=== PATIENT | female | born 1930 | race Caucasian/White ===

== ENCOUNTER 2022-06-12 12:16 | Observation (INO) ==
--- NOTE | 2022-06-12 12:53 | Emergency Department Note ---
Impression & Plan Generalized weakness, Acute dehydration, Multiple falls, Anticoagulant long- term use, Multiple contusions ED Provider Note Name: FLORI NICOLE Age: 89 Sex: F Arrives Via: Ambulance Informant: Patient, son and granddaughter ED Provider: Luke Collado MD Chief Complaint: Weakness and falls Impression: As per impressions above Medical Decision Making: Pleasant 89-year-old female with a history of COPD, stroke, fluid overload, GERD, hyper lipidemia amongst others arrives for evaluation of worsening weakness and multiple falls. On examination patient is mildly dehydrated appearing in no distress but does ask periodic repetitive questions. She has extensive bruising over the left buttock but has a soft nontender abdomen is breathing relatively comfortably other than a junky cough. She does have an old bruise of the right forehead. She had several falls but per family has not seem to have hit her head. She has been able to ambulate since the last fall. L aboratory work-up is relatively benign other than mildly elevated creatinine. Her urinalysis via straight cath is unremarkable as well. Chest x-ray reviewed from yesterday reveals no acute findings. Pelvis x-ray has no fracture on my interpretation. And a CT of the head was obtained which shows no evidence of intracranial hemorrhage. Had a long discussion with the patient and the family regarding her multiple falls and generalized weakness. I suspect some of this may be due to some dehydration given she is dry appearing and creatinine is bumped a bit. That said she is falling frequently at home is on a anticoagulant and has no one to be there with her. I do not think it safe to go home at this time. Elaborates you are agreeing with this plan. Furthermore patient has a very junky productive cough. I do not see a pneumonia on yesterday's chest x- ray but given the persistent cough worsening weakness I think it is reasonable to add an antibiotic to the steroid that they were already started yesterday for her bronchitis. Prior Medical Record and Triage/Nursing Notes reviewed by Me Chart review by me included PCP visit from yesterday regarding her shortness of breath issues. Differentials:Intracranial hemorrhage, fractures, infection, dehydration, e lectrolyte/metabolic abnormality, ACS amongst multiple other pathologies considered Vital Signs: reviewed and remarkable for no significant abnormalities Interventions: Normal saline bolus 500 mL IV, doxycycline 100 mg p.o. Labs:Reviewed and remarkable for mild elevation in creatinine. I personally reviewed all laboratory findings Imaging:I reviewed and interpreted chest x-ray done yesterday at this facility which reveals no infiltrate, effusion or significant pulmonary overload. X-rays of the pelvis and left hip interpreted by me reveals no fracture nor dislocation, does reveal arthritic findings CT of the head denies without contrast roughly read by me reveals no evidence of intracranial hemorrhage which was confirmed by radiologist EKG:As per my interpretation. Indication weakness. Normal sinus rhythm at 68 bpm and QTC of 429. There is no ectopy nor ischemia. There is no significant change from EKG from April 15, 2022. Cardiac/Tele Monitoring: Cardiac Monitoring: An Order was placed for continuous cardiac monitoring. The monitor shows a rate of 70 with a normal sinus rhythm. Consults:Dr Shelbie MEYESR hospitalist Plan: Disposition:Hospitalization. Condition: Good History of Present Illness:89-year-old female arrives for evaluation of confusion. Patient has been doing well the last month or so. She did have a trip and fall about a month ago but had not had any issues since then. A bit of a cough on and off and even had a chest x-ray yesterday which was negative. I said the last 2 to 3 days patient with increasing confusion and not quite being herself. She had a fall onto the ground from try to sit on her walker and land ed on her buttocks. Was able to ambulate since then. She had another fall when trying to sit on the toilet today. Neither time if she hit her head. She denies any hip or extremity pain. Patient denies any symptoms. Family just dates she is not her normal self and she is not as interactive as usual. At times she has been having blank stares throughout the last 2 days. Does seem to be having some increased urination. She does have a history of UTIs. Patient is on a blood thinner sees Elvin). No medications prior to arrival. Nothing seems to make the confusion better or worse. Past History:See Below Home Medications:See Below Allergies:NKDA Vitals:Blood Pressure: 107/63, Pulse 71, RR 20, T 36.5C, O2 98% on 3L NC Physical Exam: GENERAL: Patient is elderly appearing and in minimal distress. EYES: No scleral icterus, unremarkable pupils. ENT: Mucous membranes dry, no nasal congestion. NECK: No masses appreciated, nomeningismus, trachea is midline. RESPIRATORY: No dyspnea. Clear to auscultation and equal bilaterally. No wheeze, no rhonchi. CARDIOVASCULAR: Regular rate and rhythm.No murmurs, rubs, gallops appreciated. GASTROINTESTINAL: Abdomen soft, non-tender, no peritonitis.Bowel sounds positive.No masses appreciated. BACK: No midline tenderness, no CVA tenderness EXTREMITIES: Normal motion all extremities, no cyanosis, no edema. NEUROLOGIC: Awake though repetitive at times and not oriented. No focal weakness appreciated SKIN: No rash, no jaundice, no diaphoresis. Large bruise over left buttock and left lower back, non-tender GCS: 15 ED Course: Times/Reassessments: Patient calm cooperative with junky cough agreeable to hospitalization Luke Collado MD Past Med/Surg History Medical History H/O: stroke History of deep venous thrombosis or pulmonary embolus Stroke Surgical History H/O hemorrhoidectomy H/O lumpectomy Family History Mother Myocardial infarction Stroke Sister Cancer Other No family history of bleeding disorder Denies family history of Heart disease Hypertension Asthma Social History Smoking Status: Never smoker Second Hand Exposure: No; Hx Alcohol Use: No Hx Substance Use: No Preferred Language: Fijian Communication Ability: Effective Visual Impairment: No Limitations Hearing Ability: Hard of Hearing Lieutenant/Deputy Required: No marital status: / Current Living Situation: Alone current occupational status: retired How many Children do You have: 2 Feels Safe at Home: Yes Childhood Exposure to Second-Hand Smoke: Yes Diet Comment: regular Dental Care, Regularly: No Physical Activity Frequency: Does not Exercise Seatbelt Use: always Sunscreen Use: No Assistive Devices: Glasses, Oxygen - Continuous and Walker Allergies Allergies Allergy/AdvReac Type Severity Reaction Status Date / Time No Known Drug Allergies Allergy Unknown Verified 06/11/22 14:08 Home Meds Home Medications Medication Instructions Recorded Confirmed acetaminophen 325 mg capsule 650 mg PO Q4H PRN Pain 05/15/19 06/12/22 polyethylene glycol 3350 17 17 gm PO DAILY 05/15/19 06/12/22 gram/dose oral powder (Miralax) aspirin 81 mg tablet,delayed 81 mg PO DAILY 10/17/19 06/12/22 release (Adult Aspirin Regimen) simvastatin 40 mg tablet 40 mg PO QPM 10/17/19 06/12/22 multivitamin 1 tab PO DAILY 10/09/21 06/12/22 omega 5-wva-jda-fish oil 1,000 mg 1 cap PO DAILY 10/09/21 06/12/22 (120 mg-180 mg) capsule mupirocin 2 % topical ointment 1 applic topical DAILY PRN Skin 06/12/22 06/12/22 Irritation Previous Rx's Medication Instructions Recorded ondansetron HCl 4 mg tablet 4 mg PO Q6H PRN nausea and 04/03/21 (Zofran) vomiting #15 tabs carvedilol 12.5 mg tablet 12.5 mg PO BID #180 tabs 10/19/21 venlafaxine 100 mg tablet 100 mg PO BID #180 tabs 10/19/21 O2 4 l continuous inhalation 10/20/21 CONTINOUS #1 unit montelukast 10 mg tablet 10 mg PO DAILY #90 tabs 11/19/21 pantoprazole 40 mg tablet,delayed 40 mg PO DAILY 0 days #90 tabs 12/28/21 release clotrimazole-betamethasone 1 1 applic topical BID 2 weeks #15 01/06/22 %-0.05 % topical cream grams furosemide 40 mg tablet 40 mg PO DAILY #90 tabs 01/19/22 budesonide-formoterol HFA 80 1 inh inhalation BID #10.2 grams 03/10/22 mcg-4.5 mcg/actuation aerosol inhaler (Symbicort) albuterol sulfate 2.5 mg/0.5 mL 5 mg inhalation Q6H PRN shortness 03/16/22 solution for nebulization of breath or wheezing #30 ea albuterol sulfate 2.5 mg/3 mL 2.5 mg (3 mL) inhalation Q6H PRN 04/15/22 (0.083 %) solution for nebulization shortness of breath or wheezing #180 mL apixaban 5 mg tablet 5 mg PO BID #60 tabs 04/26/22 lorazepam 0.5 mg tablet 0.5 mg PO TID PRN Anxiety 90 days 06/03/22 #270 tabs potassium chloride 20 mEq 20 meq PO DAILY #90 tabs 06/09/22 tablet,extended release(part/cryst) albuterol sulfate 90 mcg/actuation 2 puff inhalation QID PRN 06/11/22 aerosol inhaler shortness of breath or wheezing #6.7 grams prednisone 10 mg tablet 10 mg PO .COMPLEX #30 tabs 06/11/22 Results & Data (ED) Vital Signs Vital Signs - 24 hr 06/12/22 12:17 06/12/22 12:17 06/12/22 12:30 Temperature 36.5 C Temperature Source Oral Pulse Rate 68 Pulse Rate [Right Finger] 68 Respiratory Rate 20 20 Respiratory Effort / Characteristics Non-Labored Non-Labored Respiratory Depth Normal Normal Blood Pressure 114/53 L Blood Pressure [Left Arm] 109/53 L Blood Pressure Mean 73 Blood Pressure Mean [Left Arm] 71 Pulse Oximetry 95 95 Oxygen Delivery Method Nasal Cannula Nasal Cannula Nasal Cannula Oxygen Flow Rate 3 3 3 Sepsis Recent Fever Within 48 Hours No Sepsis New/Unexplained Change in Mental Status N/A Sepsis Action Taken by Nursing No Action Required 06/12/22 13:34 06/12/22 14:33 06/12/22 15:20 Temperature Temperature Source Pulse Rate Pulse Rate [Right Finger] 68 68 71 Respiratory Rate 20 20 20 Respiratory Effort / Characteristics Non-Labored Non-Labored Respiratory Depth Normal Normal Blood Pressure Blood Pressure [Left Arm] 102/66 131/72 107/63 Blood Pressure Mean Blood Pressure Mean [Left Arm] 78 91 77 Pulse Oximetry 97 100 98 Oxygen Delivery Method Nasal Cannula Nasal Cannula Nasal Cannula Oxygen Flow Rate 3 3 3 Sepsis Recent Fever Within 48 Hours Sepsis New/Unexplained Change in Mental Status Sepsis Action Taken by Nursing Laboratory Data 06/12/22 13:00 06/12/22 13:00 Lab Results 06/12/22 06/12/22 06/12/22 Range/Units 12:40 13:00 13:00 WBC 8.70 (4.8-10.8) K/ul RBC 2.91 L (4.20-5.40) M/uL Hgb 9.5 L (12.0-16.0) g/dl Hct 29.5 L (37.0-47.0) % MCV 101.4 H (80.0-100.0) fL MCH 32.6 (25.0-34.0) pg MCHC 32.2 (32.0-36.0) g/dL RDW Std Deviation 47.8 H (36.4-46.3) fL RDW Coeff of Tonya 12.8 (11.5-14.5) % Plt Count 173 (130-400) K/uL MPV 10.4 (9.4-12.4) fL Neutrophils % (Manual) 84 % Lymphocytes % (Manual) 9 % Monocytes % (Manual) 6 % Eosinophils % (Manual) 1 % Myelocytes % (Man) 1 % Neutrophils # (Manual) 7.31 H (1.40-6.50) K/uL Total Absolute Neuts 7.31 H (1.4-6.5) K/uL Lymphocytes # (Manual) 0.78 L (1.2-3.4) K/uL Total Abs Lymphocytes 0.78 L (1.2-3.4) K/uL Monocytes # (Manual) 0.52 (0.11-0.59) K/uL Eosinophils # (Manual) 0.09 (0-0.50) K/uL Myelocytes # (Manual) 0.09 H (0-0) K/uL Polychromasia 1+ PT 11.4 (9.0-12.0) Seconds INR 1.1 (0.9-1.1) Sodium (136-145) mmol/L Potassium (3.5-5.1) mmol/L Chloride (98-107) mmol/L Carbon Dioxide (21-32) mmol/L Anion Gap (3-11) BUN (6-23) mg/dl Creatinine (0.6-1.2) mg/dl Est Cr Clr Drug Dosing ml/min Est GFR ( Amer) ml/min Est GFR (Non-Af Amer) ml/min BUN/Creatinine Ratio (10-20) Glucose (70-99(Fasting)) mg/dl Calcium (8.5-10.1) mg/dl Magnesium (1.7-2.4) mg/dl Total Bilirubin (0.2-1.0) mg/dl Direct Bilirubin (0-0.2) mg/dl AST (13-39) U/L ALT (7-52) U/L Alkaline Phosphatase (34-104) U/L Troponin I High Sens (0-14) pg/ml Total Protein (6.0-8.3) gm/dl Albumin (3.4-5.0) gm/dl Urine Color Dark Yellow Urine Appearance Cloudy A (Clear) Urine pH 5.5 (4.5-7.5) Ur Specific [place] 1.021 (1.000-1.030) Urine Protein 2+ H (Negative) Urine Glucose (UA) Negative (Negative) Urine Ketones Trace H (Negative) Urine Blood Negative (Negative) Urine Nitrite Negative (Negative) Urine Bilirubin Negative (Negative) Urine Urobilinogen Negative (Negative) Ur Leukocyte Esterase Negative (Negative) Urine WBC (Auto) 1-5 (0-5) /hpf Urine RBC (Auto) 0-4 (0-4) /hpf U Hyaline Cast (Auto) 10-30 H (0-5) /lpf U Epithel Cells (Auto) >30 H (0-5) /lpf Urine Bacteria (Auto) Negative (Negative) SARS-CoV-2 (PCR) (Negative) Influenza Type A (PCR) (Neg) Influenza Type B (PCR) (Neg) RSV (RT-PCR) (Neg) 06/12/22 06/12/22 Range/Units 13:00 13:58 WBC (4.8-10.8) K/ul RBC (4.20-5.40) M/uL Hgb (12.0-16.0) g/dl Hct (37.0-47.0) % MCV (80.0-100.0) fL MCH (25.0-34.0) pg MCHC (32.0-36.0) g/dL RDW Std Deviation (36.4-46.3) fL RDW Coeff of Tonya (11.5-14.5) % Plt Count (130-400) K/uL MPV (9.4-12.4) fL Neutrophils % (Manual) % Lymphocytes % (Manual) % Monocytes % (Manual) % Eosinophils % (Manual) % Myelocytes % (Man) % Neutrophils # (Manual) (1.40-6.50) K/uL Total Absolute Neuts (1.4-6.5) K/uL Lymphocytes # (Manual) (1.2-3.4) K/uL Total Abs Lymphocytes (1.2-3.4) K/uL Monocytes # (Manual) (0.11-0.59) K/uL Eosinophils # (Manual) (0-0.50) K/uL Myelocytes # (Manual) (0-0) K/uL Polychromasia PT (9.0-12.0) Seconds INR (0.9-1.1) Sodium 138 (136-145) mmol/L Potassium 5.0 (3.5-5.1) mmol/L Chloride 102 (98-107) mmol/L Carbon Dioxide 32 (21-32) mmol/L Anion Gap 4 (3-11) BUN 33 H (6-23) mg/dl Creatinine 1.35 H (0.6-1.2) mg/dl Est Cr Clr Drug Dosing 36.5 ml/min Est GFR ( Amer) 40.2 ml/min Est GFR (Non-Af Amer) 34.7 ml/min BUN/Creatinine Ratio 24.4 H (10-20) Glucose 128 H (70-99(Fasting)) mg/dl Calcium 9.0 (8.5-10.1) mg/dl Magnesium 2.2 (1.7-2.4) mg/dl Total Bilirubin 0.5 (0.2-1.0) mg/dl Direct Bilirubin 0.1 (0-0.2) mg/dl AST 13 (13-39) U/L ALT 10 (7-52) U/L Alkaline Phosphatase 42 (34-104) U/L Troponin I High Sens 8.1 (0-14) pg/ml Total Protein 6.0 (6.0-8.3) gm/dl Albumin 3.6 (3.4-5.0) gm/dl Urine Color Urine Appearance (Clear) Urine pH (4.5-7.5) Ur Specific [place] (1.000-1.030) Urine Protein (Negative) Urine Glucose (UA) (Negative) Urine Ketones (Negative) Urine Blood (Negative) Urine Nitrite (Negative) Urine Bilirubin (Negative) Urine Urobilinogen (Negative) Ur Leukocyte Esterase (Negative) Urine WBC (Auto) (0-5) /hpf Urine RBC (Auto) (0-4) /hpf U Hyaline Cast (Auto) (0-5) /lpf U Epithel Cells (Auto) (0-5) /lpf Urine Bacteria (Auto) (Negative) SARS-CoV-2 (PCR) NEGATIVE (Negative) Influenza Type A (PCR) Negative (Neg) Influenza Type B (PCR) Negative (Neg) RSV (RT-PCR) Negative (Neg) Administered Medications Discontinued Medications Doxycycline Hyclate (Doxycycline Hyclate 100 Mg Cap) 100 mg PO NOW STA Stop: 06/12/22 14:42 Last Admin: 06/12/22 15:19 Dose: 100 mg Documented By: CORBIN Sodium Chloride (Nss) 500 mls @ 999 mls/hr IV .Q31M ONE Stop: 06/12/22 15:11 Last Admin: 06/12/22 15:19 Dose: 999 mls/hr Documented By: CORBIN Imaging Data Radiologist's Impression: Head CT 06/12/22 12:[address] DOSE: 537.48 mGy.cm HISTORY: confusion TECHNIQUE: Multiaxial CT images of the head were performed without the use of intravenous contrast. Automated exposure control was utilized for this study. A dose lowering technique was utilized adhering to the principles of ALARA. Comparison: Head CT 03/01/2022. Findings: The small retention cyst within the left maxillary sinus. The mastoid air cells are clear. The calvarium and skull base are intact. There is no mass, hematoma, midline shift, acute infarct. White matter hypodensity is nonspecific but suggestive of microvascular ischemic change. The ventricles and sulci demonstrate mild age-related involutional changes. Impression: No acute intracranial abnormality. Atrophy and microvascular ischemic changes. ACT 112: Negative or not required by law. Electronically signed by: Evens Soler M.D. 06/12/2022 2:29 PM Pelvis X-Ray 06/12/22 12:40 XR pelvis 1-2V routine CLINICAL HISTORY: Fall. Hip pain. COMPARISON STUDY: None. FINDINGS: Moderate degenerative changes within the pelvis and hips. No fracture or dislocation within the pelvis or hips. The sacrum is intact. A small calcified uterine fibroid is noted. IMPRESSION: No fracture or dislocation within the pelvis or hips. ACT 112: Negative or not required by law. Electronically signed by: Evens Soler M.D. 06/12/2022 2:26 PM Discharge Plan Visit Data Chief Complaint: Confusion ED Provider: Luke Collado Discharge Problem: Generalized weakness, Acute dehydration, Multiple falls, Anticoagulant long- term use, Multiple contusions Forms Stand Alone Forms: My 28msec Prescriptions Prescriptions: No Action carvedilol 12.5 mg tablet 12.5 mg PO BID Qty: 180 3RF venlafaxine 100 mg tablet 100 mg PO BID Qty: 180 3RF O2 4 l continuous inhalation CONTINOUS Qty: 1 0RF montelukast 10 mg tablet 10 mg PO DAILY Qty: 90 3RF pantoprazole 40 mg tablet,delayed release (DR/EC) 40 mg PO DAILY Qty: 90 3RF furosemide 40 mg tablet 40 mg PO DAILY Qty: 90 1RF albuterol sulfate 2.5 mg/0.5 mL solution for nebulization 5 mg inhalation Q6H PRN (Reason: shortness of breath or wheezing) Qty: 30 0RF apixaban 5 mg tablet 5 mg PO BID Qty: 60 3RF lorazepam 0.5 mg tablet 0.5 mg PO TID PRN (Reason: Anxiety) 90 Days Qty: 270 0RF potassium chloride 20 mEq tablet,ER particles/crystals 20 meq PO DAILY Qty: 90 1RF albuterol sulfate 90 mcg/actuation HFA aerosol inhaler 2 puff inhalation QID PRN (Reason: shortness of breath or wheezing) Qty: 6.7 3RF aspirin [Adult Aspirin Regimen] 81 mg tablet,delayed release (DR/EC) 81 mg PO DAILY simvastatin 40 mg tablet 40 mg PO QPM clotrimazole-betamethasone 1-0.05 % cream 1 applic topical BID 14 Days Qty: 15 1RF Rx Instructions: Apply to the external right ear twice daily x 7 days then twice weekly x 3 weeks then as needed for itching/flaking Apply to the left ear alternating with mupirocin ointment daily x 2 weeks then PRN itching/flaking. acetaminophen 325 mg capsule 650 mg PO Q4H PRN (Reason: Pain) polyethylene glycol 3350 [Miralax] 17 gram/dose powder 17 gm PO DAILY multivitamin Tablet 1 tab PO DAILY omega 2-yyt-csb-fish oil 1,000 mg (120 mg-180 mg) capsule 1 cap PO DAILY budesonide-formoterol [Symbicort] 80-4.5 mcg/actuation HFA aerosol inhaler 1 inh inhalation BID Qty: 10.2 2RF prednisone 10 mg tablet 10 mg PO .COMPLEX Qty: 30 0RF Rx Instructions: 4 tabs for 3 days, 3 tabs for 3 days, 2 tabs for 3 days, 1 tab for 3 days albuterol sulfate 2.5 mg /3 mL (0.083 %) solution for nebulization 2.5 mg inhalation Q6H PRN (Reason: shortness of breath or wheezing) Qty: 180 0RF ondansetron HCl [Zofran] 4 mg tablet 4 mg PO Q6H PRN (Reason: nausea and vomiting) Qty: 15 0RF mupirocin 2 % ointment 1 applic topical DAILY PRN (Reason: Skin Irritation) Rx Instructions: apply once daily to the left ear alternating with clotrimazole-betamethasone ointment x 2 weeks. Referrals Referrals: Waqas Reilly, [Primary Care Provider] -
[2022-06-12 13:08] LABS: Appearance Urine Cloudy (Clear); Bacteria Urine Automated Negative (Negative); Bilirubin Urine Negative (Negative); Blood Urine Negative (Negative); Color Urine Dark Yellow; Epithelial Cell Urine Auto >30 /lpf (0-5); Glucose Urine UA Negative (Negative); Ketones Urine Trace (Negative); Leukocyte Esterase Urine Negative (Negative); Nitrite Urine Negative (Negative); Protein Urine 2+ (Negative); RBC Urine Automated 0-4 /hpf (0-4); Specific Gravity Urine 1.021 (1.000-1.030); Urobilinogen Urine Negative (Negative); pH Urine 5.5 (4.5-7.5)
[2022-06-12 13:09] LABS: Hematocrit (blood only) 29.5 % (37.0-47.0); Hemoglobin 9.5 g/dl (12.0-16.0); Mean Corpuscular Hemoglobin 32.6 pg (25.0-34.0); Mean Corpuscular Hgb Conc 32.2 g/dL (32.0-36.0); Mean Corpuscular Volume 101.4 fL (80.0-100.0); Mean Platelet Volume 10.4 fL (9.4-12.4); Platelet Count 173 K/uL (130-400); RDW Coefficient of Variation 12.8 % (11.5-14.5); RDW Standard Deviation 47.8 fL (36.4-46.3); Red Blood Count 2.91 M/uL (4.20-5.40)
[2022-06-12 13:17] LABS: INR 1.1 (0.9-1.1); Prothrombin Time 11.4 Seconds (9.0-12.0)
[2022-06-12 13:29] LABS: ALC (manual) 0.78 K/uL (1.2-3.4); ANC (manual) 7.31 K/uL (1.4-6.5); Eosinophils # (manual) 0.09 K/uL (0-0.50); Eosinophils % (manual) 1 %; Lymphocytes # (manual) 0.78 K/uL (1.2-3.4); Lymphocytes % (manual) 9 %; Monocytes # (manual) 0.52 K/uL (0.11-0.59); Monocytes % (manual) 6 %; Myelocytes # (manual) 0.09 K/uL (0-0); Myelocytes % (manual) 1 %; Neutrophils # (manual) 7.31 K/uL (1.40-6.50); Neutrophils % (manual) 84 %; Polychromasia 1+
[2022-06-12 13:38] LABS: Troponin I High Sensitivity 8.1 pg/ml (0-14)
[2022-06-12 13:43] LABS: Albumin Level 3.6 gm/dl (3.4-5.0); Bilirubin Direct 0.1 mg/dl (0-0.2); Bilirubin,Total 0.5 mg/dl (0.2-1.0); Magnesium 2.2 mg/dl (1.7-2.4)
[2022-06-12 13:49] LABS: BUN Creatinine Ratio 24.4 (10-20); Creatinine Clr Calc Pharmacy 36.5 ml/min; Est GFR (African American) 40.2 ml/min; Est GFR (Non-African American) 34.7 ml/min
--- NOTE | 2022-06-12 14:28 | XRay Report ---
XR pelvis 1-2V routine CLINICAL HISTORY: Fall. Hip pain. COMPARISON STUDY: None. FINDINGS: Moderate degenerative changes within the pelvis and hips. No fracture or dislocation within the pelvis or hips. The sacrum is intact. A small calcified uterine fibroid is noted. IMPRESSION: No fracture or dislocation within the pelvis or hips. ACT 112: Negative or not required by law. Electronically signed by: Evens Soler M.D. 06/12/2022 2:26 PM
--- NOTE | 2022-06-12 14:30 | CT Scan Report ---
HEAD CT NONCONTRAST CT DOSE: 537.48 mGy.cm HISTORY: confusion TECHNIQUE: Multiaxial CT images of the head were performed without the use of intravenous contrast. A utomated exposure control was utilized for this study. A dose lowering technique was utilized adheri ng to the principles of ALARA. Comparison: Head CT 03/01/2022. Findings: The small retention cyst within the left maxillary sinus. The mastoid air cells are clear. The calvarium and skull base are intact. There is no mass, hematoma, midline shift, acute infarct. Wh ite matter hypodensity is nonspecific but suggestive of microvascular ischemic change. The ventricles and sulci demonstrate mild age-related involutional changes. Impression: No acute intracranial abnormality. Atrophy and microvascular ischemic changes. ACT 112: Negative or not required by law. Electronically signed by: Evens Soler M.D. 06/12/2022 2:29 PM
[2022-06-12] MEDS ORDERED: SODIUM CHLORIDE 0.9% 500 ML IV ONE (14:41)
[2022-06-12] MEDS ORDERED: DOXYCYCLINE HYCLATE 100 MG CAP PO STA (14:41)
[2022-06-12 14:59] LABS: Influenza A virus by PCR Negative (Neg); Influenza B virus by PCR Negative (Neg); RSV by PCR Negative (Neg); SARS CoV2 RNA(COVID-19) Ceph NEGATIVE (Negative)
--- NOTE | 2022-06-12 15:18 | History & Physical Report ---
Date of Service June 12, 2022 Assessment & Plan (1) Multiple falls: Plan: -Admit to med/tele -The patient is currently afebrile, hemodynamically stable, and stable on her baseline 2L NC -At this time the patient's recent falls sound most consistent with dizziness /orthostatic hypotension, likely due to her lasix and carvedilol -No signs of acute infection, patient appears dry on exam and cr is elevated compared to baseline, patient has had multiple episodes of dizziness prior to her falls, CT of the head was negative and she is without focal neuro defects, no signs or symptoms of possible seizure-like activity -Xray of the pelvis was negative for acute fractures/dislocations, patient has a large hematoma on the buttocks with tenderness to the lower lumbar spine, will obtain CT of the abd/pelvis wo con for further assessment -For now will hold her lasix and reduce her dose of Carvedilol from 12.5 BID to 6.25 -Monitor on tele -Will obtain am orthostatic vitals and have her evaluated by PT/OT -Patient has been on prn ativan for over 60 years, was ordered as 0.5 mg TID, will decreased the dose to 0.25 mg PO HS prn for now to avoid polypharmacy and sedation -Fall precautions ordered -Am CBC, BMP, mag (2) ALISHA (acute kidney injury): Plan: -Cr today is 1.35, baseline appears to be 1.0 -Likely due to dehydration from her lasix and poor oral intake -S/P 500 mL NSS bolus in the ED -Hold lasix for now (should likely reduce her dose or hold completely prior to discharge) -Monitor am renal function (3) HTN (hypertension): Plan: -Stable -Hold lasix, monitor BP with reduction in her dose of Carvedilol -Hold KCL for now while holding lasix (4) Chronic respiratory failure with hypoxia: Plan: -Stable on her baseline 2L NC -No sign of pneumonia on CXR, patient is without increased SOB -Was started on prednisone and albuterol yesterday by her PCP and received one dose of doxy in the ED for possible bronchitis -It does not appear that she has bronchitis at this time -Will hold pred and doxy, continue with her normal breathing treatments and prn DuoNebs -Monitor on tele and pulse oximetry -Procal on admission is in process, will follow up (5) History of deep venous thrombosis or pulmonary embolus: Plan: -Continue eliquis (6) Anxiety: Plan: -Continue venlafaxine -Continue with reduced dosing of ativan Plan The patient was discussed with Dr. Morfin at the time of the admission History of Present Illness Chief Complaint: Generalized weakness, multiple falls Primary Care Provider: Waqas Reilly DO Quintana is an 89 year old female with a PMH significant for previous DVT and PE in 2019 on Eliquis, previous CVA, Pulmonary HTN, grade I diastolic dysfunction, chronic respiratory failure with Hypoxia on 2L NC at all times, and anxiety/depression who presented to the [facility] ED on 06/12/22 with complaints of generalized weakness and multiple recent falls at home. In the ED the patient was found to be afebrile, hemodynamically stable, and stable on 2L NC. Labs were remarkable for a CBC with WBC WNL, hgb of 9.5 (down from 11.4 on 04/15/22), MCV of 101 with stable MCHC, stable platelets at 173, cr at 1.35 (baseline appears to be around 1.0), stable electrolytes, glucose of 128, initial high sensitivity trop of 8.1, UA not suggestive of UTI, and Coivd/influenza/rsv negative. CT of the head was read as "No acute intracranial abnormality. Atrophy and microvascular ischemic changes.". Xray of the pelvis was read as "No fracture or dislocation within the pelvis or hips.". Chest xray from 06/11/22 was read as "No acute cardiopulmonary findings.". The patient lives alone and her family believes she is too weak at this time and will continue to fall. Prior to admission the patient was given 100 mg PO Doxycycline and a 500 mL fluid bolus. Per chart review, the patient was seen at her PCP's office on 06/11/22 for symptoms of cough and SOB. She was prescribed a tapering course of prednisone and albuterol. At the time of the exam the patient was resting comfortably in bed in no acute distress. History was only obtained from her as her family had left prior to my arrival. She states that she had a fall yesterday which occurred in her bathroom. She states that she was attempting to sit on the toilet but slipped and landed on her buttocks. She denies hitting her head or losing consciousness. Since her fall she denies head pain, cervical, thoracic, and lumbar pain, chest pain, abdominal pain, and LE pain. She does not soreness in her buttocks and states "i have a big bruise there now". She denies recent fevers, chills, chest pain, nausea, vomiting, diarrhea, dysuria, hematuria, poor appetite, bloody bowel movements, melena, and recent LE swelling. She confirms that she saw her PCP yesterday and when asked states that she started the prednisone and albuterol this morning. When asked, she currently denies fevers, chills, changes in vision, hearing, taste, and smell, chest pain, increased SOB from baseline, cough, abdominal pain, nausea, vomiting, diarrhea, dysuria, hematuria, and lower extremity swelling/pain. We discussed code status and she wishes to be a DNR/DNI. I called and spoke with her Daughter/POA (Lanie; number is in the chart) to obtain further history and confirm her med rec. Her daughter states that she has fallen twice in the past 24 hours. She fell yesterday trying to sit in a chair in her bedroom. She landed on her buttocks and did not lose consciousness. She used her life alert and EMS examined her and helped her up, she was not taken to the ED. This morning her Daughter's and daughter went over to check on her and help her with breakfast. She ate breakfast and took her morning medications without issue. They helped her stand and she began to walk to the bathroom while using her walker. She became dizzy and fell backwards, her granddaughter was able to catch her and they brought her to the ED. He daughter denies that the patient has recently been confused. She confirms that the patient started taking the prednisone and albuterol this am. Her daughter is in agreement with having the patient evaluated by PT/OT and confirmed that the patient is a DNR/DNI. Please refer to Dr. Stearns's attestation for any changes to the treatment plan Allergies Allergy/AdvReac Type Severity Reaction Status Date / Time No Known Drug Allergies Allergy Unknown Verified 06/11/22 14:08 Home Medications Medication Instructions Recorded Confirmed Type acetaminophen 325 mg capsule 650 mg PO Q4H PRN Pain 05/15/19 06/12/22 History polyethylene glycol 3350 17 17 gm PO DAILY 05/15/19 06/12/22 History gram/dose oral powder (Miralax) aspirin 81 mg tablet,delayed 81 mg PO DAILY 10/17/19 06/12/22 History release (Adult Aspirin Regimen) simvastatin 40 mg tablet 40 mg PO QPM 10/17/19 06/12/22 History ondansetron HCl 4 mg tablet 4 mg PO Q6H PRN nausea and 04/03/21 06/12/22 Rx (Zofran) vomiting #15 tabs multivitamin 1 tab PO DAILY 10/09/21 06/12/22 History omega 8-xxw-mlj-fish oil 1,000 mg 1 cap PO DAILY 10/09/21 06/12/22 History (120 mg-180 mg) capsule carvedilol 12.5 mg tablet 12.5 mg PO BID #180 tabs 10/19/21 06/12/22 Rx venlafaxine 100 mg tablet 100 mg PO BID #180 tabs 10/19/21 06/12/22 Rx O2 4 l continuous inhalation 10/20/21 06/12/22 Rx CONTINOUS #1 unit montelukast 10 mg tablet 10 mg PO DAILY #90 tabs 11/19/21 06/12/22 Rx pantoprazole 40 mg tablet,delayed 40 mg PO DAILY 0 days #90 tabs 12/28/21 06/12/22 Rx release clotrimazole-betamethasone 1 1 applic topical BID 2 weeks #15 01/06/22 06/12/22 Rx %-0.05 % topical cream grams furosemide 40 mg tablet 40 mg PO DAILY #90 tabs 01/19/22 06/12/22 Rx budesonide-formoterol HFA 80 1 inh inhalation BID #10.2 grams 03/10/22 06/12/22 Rx mcg-4.5 mcg/actuation aerosol inhaler (Symbicort) albuterol sulfate 2.5 mg/0.5 mL 5 mg inhalation Q6H PRN shortness 03/16/22 06/12/22 Rx solution for nebulization of breath or wheezing #30 ea albuterol sulfate 2.5 mg/3 mL 2.5 mg (3 mL) inhalation Q6H PRN 04/15/22 06/12/22 Rx (0.083 %) solution for nebulization shortness of breath or wheezing #180 mL apixaban 5 mg tablet 5 mg PO BID #60 tabs 04/26/22 06/12/22 Rx lorazepam 0.5 mg tablet 0.5 mg PO TID PRN Anxiety 90 days 06/03/22 06/12/22 Rx #270 tabs potassium chloride 20 mEq 20 meq PO DAILY #90 tabs 06/09/22 06/12/22 Rx tablet,extended release(part/cryst) albuterol sulfate 90 mcg/actuation 2 puff inhalation QID PRN 06/11/22 06/12/22 Rx aerosol inhaler shortness of breath or wheezing #6.7 grams prednisone 10 mg tablet 10 mg PO .COMPLEX #30 tabs 06/11/22 06/12/22 Rx mupirocin 2 % topical ointment 1 applic topical DAILY PRN Skin 06/12/22 06/12/22 History Irritation Past Med/Surg History Medical History (Updated 06/12/22 @ 16:36 by Patrice Marie PA-C) H/O: stroke History of deep venous thrombosis or pulmonary embolus Stroke Surgical History H/O hemorrhoidectomy H/O lumpectomy Family History Mother Myocardial infarction Stroke Sister Cancer Other No family history of bleeding disorder Denies family history of Heart disease Hypertension Asthma Social History Smoking Status: Never smoker Second Hand Exposure: No; Hx Alcohol Use: No Hx Substance Use: No Preferred Language: Bruneian Communication Ability: Effective Visual Impairment: No Limitations Hearing Ability: Hard of Hearing Capsule Maker Required: No Beliefs That Will Affect Care: None marital status: / Current Living Situation: Alone current occupational status: retired How many Children do You have: 2 Feels Safe at Home: Yes Safety Concerns: Feels Safe At This Time Childhood Exposure to Second-Hand Smoke: Yes Diet Comment: regular Dental Care, Regularly: No Physical Activity Frequency: Does not Exercise Seatbelt Use: always Sunscreen Use: No Assistive Devices: Oxygen - Continuous and Walker Review of Systems Review of Systems: Denies current fever, chills, headache, changes in vision, hearing, taste, and smell, chest pain, SOB, abdominal pain, nausea, vomiting, diarrhea, hematemesis, melena, dysuria, hematuria All systems have been reviewed and are otherwise negative. Physical Exam Physical Exam: Physical Exam: General: In no acute distress, stated age, morbidly obese, chronically ill- appearing HEENT: Normocephalic, atraumatic, no scleral icterus, left pupil appears asymmetric from previous procedure, right pupile is round and reactive to light, currently with NC in place, moist mucus membranes, trachea midline, no thyro megaly Chest/Pulm: No respiratory distress, symmetrical chest expansion, expiratory wheezing noted throughout Cardiac: RRR, no murmurs noted Abdomen: Negative for ascites and bruising, normoactive bowel sounds, soft, non-tender to palpation throughout Musculoskeletal: Patient is non-tender to palpation over the face, skull, cervical spine, and thoracic spine. No actue trauma noted in the upper and lower extremities. Patient with a large hematoma over the left buttocks which is tender to palpation, patient is mildly tender to palpation over the lower lumbar spine Extremities: Radial, dorsalis pedis, and posterior tibial pulses are intact and symmetrical, no edema noted in the BL LE's Skin: As described above Neuro: Alert and oriented to person, place, month, year, no focal defects, CN II-XII tested and intact, no tremors noted Psych: No acute distress, calm and cooperative during the exam Results & Data Results & Data ([facility]) Vital Signs (Past 12 Hours) Vital Signs Temp Pulse Pulse Resp BP BP Pulse Ox 06/12/22 14:33 68 20 131/72 100 06/12/22 13:34 68 20 102/66 97 06/12/22 12:30 68 20 109/53 L 95 06/12/22 12:17 06/12/22 12:17 36.5 C 68 20 114/53 L 95 O2 Del Method O2 Flow Rate 06/12/22 14:33 Nasal Cannula 3 06/12/22 13:34 Nasal Cannula 3 06/12/22 12:30 Nasal Cannula 3 06/12/22 12:17 Nasal Cannula 3 06/12/22 12:17 Nasal Cannula 3 Laboratory Results Abnormal lab results 06/12/22 06/12/22 06/12/22 Range/Units 12:40 13:00 13:00 RBC 2.91 L (4.20-5.40) M/uL Hgb 9.5 L (12.0-16.0) g/dl Hct 29.5 L (37.0-47.0) % MCV 101.4 H (80.0-100.0) fL RDW Std Deviation 47.8 H (36.4-46.3) fL Neutrophils # (Manual) 7.31 H (1.40-6.50) K/uL Total Absolute Neuts 7.31 H (1.4-6.5) K/uL Lymphocytes # (Manual) 0.78 L (1.2-3.4) K/uL Total Abs Lymphocytes 0.78 L (1.2-3.4) K/uL Myelocytes # (Manual) 0.09 H (0-0) K/uL BUN 33 H (6-23) mg/dl Creatinine 1.35 H (0.6-1.2) mg/dl BUN/Creatinine Ratio 24.4 H (10-20) Glucose 128 H (70-99(Fasting)) mg/dl Urine Appearance Cloudy A (Clear) Urine Protein 2+ H (Negative) Urine Ketones Trace H (Negative) U Hyaline Cast (Auto) 10-30 H (0-5) /lpf U Epithel Cells (Auto) >30 H (0-5) /lpf Diagnostic Findings Head CT 06/12/22 12:[address] DOSE: 537.48 mGy.cm HISTORY: confusion TECHNIQUE: Multiaxial CT images of the head were performed without the use of intravenous contrast. Automated exposure control was utilized for this study. A dose lowering technique was utilized adhering to the principles of ALARA. Comparison: Head CT 03/01/2022. Findings: The small retention cyst within the left maxillary sinus. The mastoid air cells are clear. The calvarium and skull base are intact. There is no mass, hematoma, midline shift, acute infarct. White matter hypodensity is nonspecific but suggestive of microvascular ischemic change. The ventricles and sulci demonstrate mild age-related involutional changes. Impression: No acute intracranial abnormality. Atrophy and microvascular ischemic changes. ACT 112: Negative or not required by law. Electronically signed by: Evens Soler M.D. 06/12/2022 2:29 PM Pelvis X-Ray 06/12/22 12:40 XR pelvis 1-2V routine CLINICAL HISTORY: Fall. Hip pain. COMPARISON STUDY: None. FINDINGS: Moderate degenerative changes within the pelvis and hips. No fracture or dislocation within the pelvis or hips. The sacrum is intact. A small calcified uterine fibroid is noted. IMPRESSION: No fracture or dislocation within the pelvis or hips. ACT 112: Negative or not required by law. Electronically signed by: Evens Soler M.D. 06/12/2022 2:26 PM ECG Additional Comments: Normal sinus rhythm Normal ECG When compared with ECG of 15-APR-2022 13:44, Non- specific change in ST segment in Inferior leads ST no longer elevated in Lateral leads Code Status & VTE Plan Code Status DNR/DNI VTE Prophylaxis Plan VTE Prophylaxis will be ordered: Yes Supervising Physician Co-Signing Physician Notes I personally saw and examined the patient. I verified all gray points and agree with Patrice Marie PA-C with the following exceptions and/or additions: 89 year old presents with fall and clear orthostasis ongoing for weeks but much worse in the last few days. No history of pulmonary edema per patient recollection. Already took her morning medication including Lasix and carvedilol this morning. No melena or bright red blood in stool. O/E A&Ox3, HS1+2, RRR, no murmurs, Chest CTAB, Abdo SNT, Ecchymosis present over left buttocks A/P Fall - likely orthostasis due to anti-hypertensives. No infection symptoms or signs from history of exam making this acutely worse but suspect it has been going on for some time and she just needs a reduction in her medications +/- anemia contributing. Stop Lasix. Reduce carvedilol to 6.25mg Po BID. Orthostatics tomorrow although do not expect significant improvement until Tuesday. PT/OT. Also discussed reducing her chronic lorazepam use given increased risk of falls on this medication which she is amenable to. Anemia - Suspect due to bruising from fall. No concerns for GI bleed. Ok to continue on Eliquis at this time. PG Care Time/CCT Total # of Minutes Spent Total Time Spent with Patient: Total time spent is greater than 50% in coordination of care (as documented) at patient's floor/unit and/or counseling patient: C[place] [address] INT INP/OBS CARE MIN Patient Type Established Medical Decision Making High Complexity Diagnoses Multiple falls R29.6 ALISHA (acute kidney injury) N17.9 HTN (hypertension) I10 Chronic respiratory failure with hypoxia J96.11 History of deep venous thrombosis or pulmonary embolus Anxiety F41.9
[2022-06-12 16:06] LABS: Vitamin B12 382 pg/ml (180-914)
--- NOTE | 2022-06-12 17:10 | CT Scan Report ---
CT OF THE ABDOMEN AND PELVIS WITHOUT CONTRAST CLINICAL HISTORY: Multiple falls. COMPARISON STUDY: CT of the abdomen and pelvis October 20, 2007. Pelvis radiograph performed earlier tod ay. TECHNIQUE: Axial images of the abdomen and pelvis were obtained without IV contrast. Images were revi ewed in the axial, sagittal, and coronal planes. Automated exposure control was utilized for the biju dy. A dose lowering technique was utilized adhering to the principles of ALARA. FINDINGS: This exam is compromised by body wall contacting the gantry with resultant artifact. Note i s made of a hyperdense fluid collection within the subcutaneous tissues of the right lower back consi stent with a contusion. This is partially imaged on this exam given artifact. This measures approxima tely 15 x 14.8 x 3.7 cm. No hemoperitoneum or pneumoperitoneum is present. There is no evidence for t raumatic injury to the liver, spleen, adrenal glands, kidneys or pancreas on this unenhanced exam. Th ere is no free fluid. There is no evidence for a bowel obstruction. 3 cm infrarenal abdominal aortic aneurysm is noted. There is extensive aortoiliac atherosclerotic plaque. Calcified fibroid is inciden tally noted. There is no lymphadenopathy. No acute lumbar spine, pelvic or hip fractures are identifi ed. IMPRESSION: 1. Moderate to large right lower back subcutaneous contusion, measuring approximately 15 x 14.8 x 3.7 cm, partially obscured by artifact. 2. No additional acute traumatic findings identified. No acute fractures. 3. 3 cm infrarenal abdominal aortic aneurysm. ACT 112: Negative or not required by law. Electronically signed by: Jae Barone M.D. 06/12/2022 5:08 PM
[2022-06-12] MEDS ORDERED: APIXABAN 5 MG TABLET PO SCH (21:25)
[2022-06-12] MEDS: ALBUT/IPRATROP 3MG/0.5MG NEB 3 ML VIAL NEB SCH (21:47)
[2022-06-12] MEDS: carvediloL 6.25 MG TAB PO SCH (21:55)
[2022-06-12] MEDS: SIMVASTATIN 40 MG TAB PO SCH (21:57)
[2022-06-12] MEDS: VENLAFAXINE HCL 50 MG TAB PO SCH (21:58)
[2022-06-12] MEDS: LORazepam 0.5 MG TAB PO PRN (22:00)
[2022-06-12] MEDS: ACETAMINOPHEN 325 MG TAB PO PRN (22:01)
[2022-06-13 02:25] LABS: Amphetamines+Metham, Urine Neg (Neg); Barbiturates, Urine Neg (Neg); Benzodiazepine, Urine Neg (Neg); Cocaine, Urine Neg (Neg); MDMA (Ecstacy), Urine Neg (Neg); Methadone, Urine Neg (Neg); Opiate, Urine Neg (Neg); Phencyclidine, Urine Neg (Neg)
[2022-06-13 05:36] LABS: Hematocrit (blood only) 25.2 % (37.0-47.0); Hemoglobin 8.2 g/dl (12.0-16.0); Mean Corpuscular Hemoglobin 33.3 pg (25.0-34.0); Mean Corpuscular Hgb Conc 32.5 g/dL (32.0-36.0); Mean Corpuscular Volume 102.4 fL (80.0-100.0); Mean Platelet Volume 10.7 fL (9.4-12.4); Platelet Count 165 K/uL (130-400); RDW Coefficient of Variation 12.8 % (11.5-14.5); RDW Standard Deviation 47.8 fL (36.4-46.3); Red Blood Count 2.46 M/uL (4.20-5.40)
[2022-06-13 05:52] LABS: Calcium 8.7 mg/dl (8.5-10.1); Potassium 4.4 mmol/L (3.5-5.1)
[2022-06-13 05:58] LABS: BUN Creatinine Ratio 31.3 (10-20); Est GFR (African American) 50.4 ml/min; Est GFR (Non-African American) 43.5 ml/min
[2022-06-13] MEDS: ALBUT/IPRATROP 3MG/0.5MG NEB 3 ML VIAL NEB SCH ×4 (06:50→19:52)
--- NOTE | 2022-06-13 07:30 | Electrocardiogram Report ---
Test Reason : Blood Pressure : / mmHG Vent. Rate : 068 BPM Atrial Rate : 068 BPM P-R Int : 162 ms QRS Dur : 086 ms QT Int : 404 ms P-R-T Axes : 054 026 045 degrees QTc Int : 429 ms Normal sinus rhythm Normal ECG When compared with ECG of 15-APR-2022 13:44, Non-specific change in ST segment in Inferior leads ST no longer elevated in Lateral leads Confirmed by Migue Latham ([id number]) on 06/13/2022 7:29:57 AM Referred By: Confirmed By:Kavon Latham
[2022-06-13] MEDS: carvediloL 6.25 MG TAB PO SCH ×2 (08:45→20:15)
[2022-06-13] MEDS: FLUTICASONE/VILANTEROL 100/25MCG 14 PUFFS/INHALER INH SCH (08:45)
[2022-06-13] MEDS: VENLAFAXINE HCL 50 MG TAB PO SCH ×2 (08:46→20:15)
[2022-06-13] MEDS: POLYETHYLENE (MIRALAX) 17 GM PACK PO SCH (08:46)
[2022-06-13] MEDS: ASPIRIN 81 MG ECTAB PO SCH (08:46)
[2022-06-13] MEDS: SODIUM CHLORIDE 0.9% 1000ML 1,000 ML IV SCH (11:38)
[2022-06-13 12:09] LABS: Ferritin 25.2 ng/ml (8-388)
--- NOTE | 2022-06-13 15:05 | Hospitalist Progress Note ---
Date of Service June 13, 2022 Assessment & Plan (1) Multiple falls: Plan: Supportive care. Continue OT and PT. x-rays negative for fractures. She does have a large right buttock hematoma that will be treated conservatively (2) ALISHA (acute kidney injury): Plan: Creatinine down to 1.1. Lasix held on admission. Monitor intake and output. Serial labs (3) HTN (hypertension): Plan: Coreg dosage decreased on admission. Lasix currently on hold. Stable (4) Chronic respiratory failure with hypoxia: Plan: -Stable on her baseline 2L NC . No sign of pneumonia on CXR. No evidence of bronchitis currently. She was being treated for acute bronchitis on an ou tpatient basis but this appears to have resolved. (5) History of deep venous thrombosis or pulmonary embolus: Plan: Eliquis has been discontinued due to advanced age and history of falling. Will eventually start Lovenox subcu once right buttock hematoma show signs of stability (6) Anxiety: Plan: Treated with venlafaxine . Uses Ativan as needed Plan To be determined. OT and PT assessments pending Admission and Anticipated Discharge Date Admission Date: June 12, 2022 Subjective Alert and oriented. No distress. We discussed discontinuation of Eliquis due to advanced age and history of falls. She agrees. We will check fecal occult blood and iron levels. Hemoglobin has dropped to 8.2. We will follow. Review of Systems Review of Systems: Constitutional-no fever or chills ENT-no blurred vision, no double vision, no epistaxis, no sore throat Respiratory-no cough, no wheezing, no shortness of breath Cardiac-no palpitations, no chest pain, no syncope GI-no nausea, vomiting, diarrhea, melena, hematochezia -no urinary retention, no urinary incontinence, no dysuria, no hematuria Musculoskeletal-no joint pain, no muscle tenderness Skin-no bruising, no rashes, no pruritus Neuro-no isolated weakness, no paresthesia, no weakness Psych-no depression, no anxiety Physical Exam Physical Exam: General-alert and oriented x3, no fevers, no chills HEENT-head atraumatic and normocephalic, pupils equal and reactive to light, extraocular muscles intact Neck-no lymphadenopathy or thyromegaly, trachea midline Chest-clear to auscultation percussion. No rales wheezing or rhonchi Cardiac-regular rate and rhythm, normal S1 and S2 Abdomen-normal bowel sounds, nontender, no hepatosplenomegaly Extremities-no cyanosis, clubbing, or edema Neuro-cranial nerves II through XII intact, motor and sensory function within normal limits, strength symmetrical, no focal deficits Psych-normal affect, normal mood Results & Data Results & Data ([facility]) Vital Signs (Past 12 Hours) Vital Signs Temp Pulse Pulse Resp BP Pulse Ox Pulse Ox 06/13/22 12:15 36.5 C 79 20 145/72 H 93 06/13/22 11:36 80 20 92 06/13/22 11:16 06/13/22 09:46 06/13/22 09:45 96 06/13/22 08:41 98/54 L 06/13/22 08:17 36.4 C L 86 20 129/64 93 06/13/22 07:37 83 06/13/22 06:51 71 18 93 06/13/22 04:01 36.5 C 79 18 116/54 L 94 Pulse Ox Pulse Ox Pulse Ox O2 Del Method O2 Del Method O2 Flow Rate O2 Flow Rate 06/13/22 12:15 Nasal Cannula 2 06/13/22 11:36 Nasal Cannula 2 06/13/22 11:16 93 93 93 06/13/22 09:46 Nasal Cannula 2 06/13/22 09:45 Nasal Cannula 2 06/13/22 08:41 06/13/22 08:17 Nasal Cannula 2 06/13/22 07:37 06/13/22 06:51 Nasal Cannula 3 06/13/22 04:01 Nasal Cannula 3 O2 Flow Rate O2 Flow Rate O2 Flow Rate 06/13/22 12:15 06/13/22 11:36 06/13/22 11:16 3 3 3 06/13/22 09:46 06/13/22 09:45 06/13/22 08:41 06/13/22 08:17 06/13/22 07:37 06/13/22 06:51 06/13/22 04:01 Laboratory Results 06/13/22 05:14 06/13/22 05:14 PG Care Time/CCT Total # of Minutes Spent Total Time Spent with Patient: Total time spent is greater than 50% in coordination of care (as documented) at patient's floor/unit and/or counseling patient: Coding Level of Care Code 18064 SUB INP/OBS CARE 50MIN Diagnoses Multiple falls R29.6 ALISHA (acute kidney injury) N17.9 HTN (hypertension) I10 Chronic respiratory failure with hypoxia J96.11 History of deep venous thrombosis or pulmonary embolus Anxiety F41.9
[2022-06-13] MEDS: SIMVASTATIN 40 MG TAB PO SCH (20:14)
[2022-06-13] MEDS: ACETAMINOPHEN 325 MG TAB PO PRN (21:47)
[2022-06-14] MEDS: SODIUM CHLORIDE 0.9% 1000ML 1,000 ML IV SCH (01:05)
[2022-06-14] MEDS: ALBUT/IPRATROP 3MG/0.5MG NEB 3 ML VIAL NEB SCH ×4 (07:32→19:45)
[2022-06-14] MEDS: POLYETHYLENE (MIRALAX) 17 GM PACK PO SCH (07:36)
[2022-06-14] MEDS: FLUTICASONE/VILANTEROL 100/25MCG 14 PUFFS/INHALER INH SCH (07:36)
[2022-06-14] MEDS: ASPIRIN 81 MG ECTAB PO SCH (07:36)
[2022-06-14] MEDS: VENLAFAXINE HCL 50 MG TAB PO SCH ×2 (07:36→20:38)
[2022-06-14] MEDS: carvediloL 6.25 MG TAB PO SCH ×2 (07:36→20:38)
[2022-06-14 08:10] LABS: Hematocrit (blood only) 21.3 % (37.0-47.0); Hemoglobin 6.9 g/dl (12.0-16.0); Mean Corpuscular Hemoglobin 33.2 pg (25.0-34.0); Mean Corpuscular Hgb Conc 32.4 g/dL (32.0-36.0); Mean Corpuscular Volume 102.4 fL (80.0-100.0); Mean Platelet Volume 10.8 fL (9.4-12.4); Nucleated RBC # (auto) 0.02 K/uL (0-0.12); Nucleated RBC % (auto) 0.3 %; Platelet Count 149 K/uL (130-400); RDW Coefficient of Variation 13.2 % (11.5-14.5); RDW Standard Deviation 49.1 fL (36.4-46.3); Red Blood Count 2.08 M/uL (4.20-5.40); White Blood Count 7.16 K/ul (4.8-10.8)
[2022-06-14 08:22] LABS: Calcium 8.4 mg/dl (8.5-10.1); Potassium 4.1 mmol/L (3.5-5.1)
[2022-06-14 08:28] LABS: BUN Creatinine Ratio 28.3 (10-20); Creatinine Clr Calc Pharmacy 49.7 ml/min; Est GFR (African American) 58.6 ml/min; Est GFR (Non-African American) 50.5 ml/min
[2022-06-14] MEDS ORDERED: SODIUM CHLORIDE 0.9% 250 ML IV PRN (09:32)
[2022-06-14] MEDS ORDERED: Nursing to Pharmacy Communication SCH (13:30)
[2022-06-14] MEDS ORDERED: FUROSEMIDE 40 MG TAB PO ONE (15:07)
--- NOTE | 2022-06-14 15:12 | Hospitalist Progress Note ---
Date of Service June 14, 2022 Assessment & Plan (1) Multiple falls: Plan: Supportive care. Continue OT and PT. X-rays negative for fractures. She does have a large right buttock hematoma that will be treated conservatively (2) ALISHA (acute kidney injury): Plan: Creatinine down to 1.0. Lasix held on admission but has been restarted today, June 14. Monitor intake and output. Serial labs (3) HTN (hypertension): Plan: Coreg dosage decreased on admission. Lasix initially held but restarted today, June 14. Stable (4) Chronic respiratory failure with hypoxia: Plan: Stable on her baseline 2L NC . No sign of pneumonia on CXR. She has evidence of asthmatic bronchitis which is being treated. (5) History of deep venous thrombosis or pulmonary embolus: Plan: Eliquis has been discontinued due to advanced age and history of falling. Will eventually start Lovenox subcu once right buttock hematoma show signs of stability (6) Anxiety: Plan: Treated with venlafaxine . Uses Ativan as needed (7) Acute blood loss anemia: Plan: Due to hematoma. No evidence of GI bleeding. Hemoglobin down to 6.9 today. 2 units packed red blood cell transfusion today. Continue daily lab studies. Check iron levels Plan To be determined. OT and PT assessments pending . Probable short-term SNF placement at discharge Admission and Anticipated Discharge Date Admission Date: June 12, 2022 Subjective Alert and oriented. No distress. Hemoglobin is dropped to 6.9 and she has given consent for blood transfusion. Daughter is at the bedside. IV fluids discontinued. Lasix has been restarted. Respiratory status has improved with treatment of asthmatic bronchitis. Creatinine stable at 1.0. Fecal occult blood and iron level pending Review of Systems Review of Systems: Constitutional-no fever or chills ENT-no blurred vision, no double vision, no epistaxis, no sore throat Respiratory-no cough, no wheezing, no shortness of breath Cardiac-no palpitations, no chest pain, no syncope GI-no nausea, vomiting, diarrhea, melena, hematochezia -no urinary retention, no urinary incontinence, no dysuria, no hematuria Musculoskeletal-no joint pain, no muscle tenderness Skin-no bruising, no rashes, no pruritus Neuro-no isolated weakness, no paresthesia, no weakness Psych-no depression, no anxiety Physical Exam Physical Exam: General-alert and oriented x3, no fevers, no chills HEENT-head atraumatic and normocephalic, pupils equal and reactive to light, extraocular muscles intact Neck-no lymphadenopathy or thyromegaly, trachea midline Chest-clear to auscultation percussion. No rales wheezing or rhonchi Cardiac-regular rate and rhythm, normal S1 and S2 Abdomen-normal bowel sounds, nontender, no hepatosplenomegaly Extremities-no cyanosis, clubbing, or edema Neuro-cranial nerves II through XII intact, motor and sensory function within normal limits, strength symmetrical, no focal deficits Psych-normal affect, normal mood Results & Data Results & Data ([facility]) Vital Signs (Past 12 Hours) Vital Signs Temp Pulse Pulse Resp BP BP Pulse Ox 06/14/22 14:47 83 19 97 06/14/22 13:45 36.8 C 81 18 129/61 97 06/14/22 13:45 36.9 C 82 18 146/80 H 94 06/14/22 13:15 36.8 C 79 19 122/73 95 06/14/22 13:00 36.6 C 79 19 130/74 94 06/14/22 12:45 37.0 C 83 18 134/74 97 06/14/22 11:24 72 18 97 06/14/22 11:01 36.9 C 72 20 132/67 96 06/14/22 07:00 84 06/14/22 09:24 06/14/22 08:44 06/14/22 07:34 36.8 C 80 18 127/72 94 06/14/22 07:32 82 16 96 Pulse Ox O2 Del Method O2 Del Method O2 Flow Rate O2 Flow Rate 06/14/22 14:47 Nasal Cannula 4 06/14/22 13:45 4 06/14/22 13:45 4 06/14/22 13:15 4 06/14/22 13:00 4 06/14/22 12:45 4 06/14/22 11:24 Nasal Cannula 4 06/14/22 11:01 Nasal Cannula 4 06/14/22 07:00 06/14/22 09:24 Nasal Cannula 2 06/14/22 08:44 98 Nasal Cannula 2 06/14/22 07:34 Nasal Cannula 2 06/14/22 07:32 Nasal Cannula 2 Laboratory Results 06/14/22 07:19 06/14/22 07:19 PG Care Time/CCT Total # of Minutes Spent Total Time Spent with Patient: Total time spent is greater than 50% in coordination of care (as documented) at patient's floor/unit and/or counseling patient: Coding Level of Care Code 21185 SUB INP/OBS CARE 3/50MIN Diagnoses Multiple falls R29.6 ALISHA (acute kidney injury) N17.9 HTN (hypertension) I10 Chronic respiratory failure with hypoxia J96.11 History of deep venous thrombosis or pulmonary embolus Anxiety F41.9 Acute blood loss anemia D62
[2022-06-14 16:37] LABS: Ferritin 24.4 ng/ml (8-388)
[2022-06-14] MEDS: SIMVASTATIN 40 MG TAB PO SCH (20:37)
[2022-06-14] MEDS: ACETAMINOPHEN 325 MG TAB PO PRN (20:46)
[2022-06-14] MEDS: LORazepam 0.5 MG TAB PO PRN (20:46)
[2022-06-14 21:12] LABS: Hematocrit (blood only) 26.8 % (37.0-47.0); Hemoglobin 9.1 g/dl (12.0-16.0)
[2022-06-15] MEDS: ALBUT/IPRATROP 3MG/0.5MG NEB 3 ML VIAL NEB SCH ×4 (07:03→20:17)
[2022-06-15] MEDS: FLUTICASONE/VILANTEROL 100/25MCG 14 PUFFS/INHALER INH SCH (08:07)
[2022-06-15] MEDS: VENLAFAXINE HCL 50 MG TAB PO SCH ×3 (08:08→20:45)
[2022-06-15] MEDS: FUROSEMIDE 40 MG TAB PO SCH ×2 (08:08→10:14)
[2022-06-15] MEDS: carvediloL 6.25 MG TAB PO SCH ×3 (08:08→20:44)
[2022-06-15] MEDS: ASPIRIN 81 MG ECTAB PO SCH ×2 (08:09→10:15)
[2022-06-15] MEDS: POLYETHYLENE (MIRALAX) 17 GM PACK PO SCH (08:09)
[2022-06-15 08:21] LABS: Hematocrit (blood only) 26.7 % (37.0-47.0); Hemoglobin 8.9 g/dl (12.0-16.0); Mean Corpuscular Hemoglobin 33.3 pg (25.0-34.0); Mean Corpuscular Hgb Conc 33.3 g/dL (32.0-36.0); Mean Platelet Volume 10.8 fL (9.4-12.4); Nucleated RBC # (auto) 0.02 K/uL (0-0.12); Nucleated RBC % (auto) 0.3 %; Platelet Count 142 K/uL (130-400); RDW Coefficient of Variation 14.5 % (11.5-14.5); RDW Standard Deviation 52.2 fL (36.4-46.3); Red Blood Count 2.67 M/uL (4.20-5.40)
[2022-06-15 08:28] LABS: BUN Creatinine Ratio 25.3 (10-20); Calcium 8.7 mg/dl (8.5-10.1); Creatinine Clr Calc Pharmacy 58.5 ml/min; Est GFR (African American) 72.5 ml/min; Est GFR (Non-African American) 62.5 ml/min; Potassium 4.2 mmol/L (3.5-5.1)
[2022-06-15] MEDS: ACETAMINOPHEN 325 MG TAB PO PRN ×2 (10:19→20:42)
--- NOTE | 2022-06-15 20:06 | Hospitalist Progress Note ---
Date of Service June 15, 2022 Assessment & Plan (1) Traumatic hematoma of buttock: Plan: right lower back/buttock -- 15 x 14.8 x 3.7 cm on imaging ELIQUIS on hold asa 81mg daily being cautiously continued supportive care, pain control, serial H/H's heating pad, if available (2) Acute blood loss anemia: Plan: 2nd to #1 above s/p 2 units PRBCs H/H stable since Fe studies c/w Iron Deficiency which would argue for more chronic blood loss issues (see below) CBC am (3) Iron deficiency: Plan: ferritin <25 this suggests chronic blood loss - perhaps occult GI blood loss in setting of chronic Eliquis/aspirin usage consider IV venofer while here cbc am (4) Multiple falls: Plan: 2nd to severe orthostasis as documented at time of admission? recheck orthostatics in am PT, OT needs placement for rehab (5) ALISHA (acute kidney injury): Plan: Peak Cr 1.35 now 0.8 resolved lasix resumed BMP am (6) HTN (hypertension): Plan: Coreg dosage decreased on admission to 6.25mg BID. Lasix resumed 06/14. BPs controlled. Recheck orthostatic BPs in am. (7) Chronic respiratory failure with hypoxia: Plan: on chronic home O2, 2-4 L stable etiology for chronic hypoxia? OHS/IMANI? pulmonary HTN? other? (8) History of deep venous thrombosis or pulmonary embolus: Plan: h/o PE - 2019 hospitalized at [facility] uncertain why she has remained on blood thinners since then Eliquis now on hold due to #1 attempt to get records from [place] tomorrow (9) Anxiety: Plan: Cont venlafaxine (10) H/O: stroke: Plan: 2019 embolic per records was on Eliquis prior to this admission; now on hold due to acute blood loss anemia and hematoma formation (11) Orthostatic hypotension: Plan: severe at time of admission may have contributed to her fall recheck orthos am (12) Pulmonary hypertension: Plan: last echo with at least moderate pulm HTN (13) Hoarseness of voice: Plan: documented cough/congestion/wheezing dating back to 02/2022 etiology? need for ENT eval - ?laryngoscopy? consider repeat chest CT given refractory pulmonary symptoms (14) Morbid obesity with BMI of 45.0-49.9, adult: Plan: BMI 45 (15) Constipation: Plan: add senna to miralax Plan cont PT, OT daughter updated by phone dispo - rehab post-discharge Admission and Anticipated Discharge Date Admission Date: June 12, 2022 Subjective patient reports ongoing hoarse voice, present "for at least a month" confirms she has been using home O2 [id number] at her apartment main complaint is that of right buttock pain eating ok no bowel movement since admission tele overnight wnl I spoke with pt's daughter by phone - she reports that in 2019 her mother had a stroke and was also dx with PEs - has been on Eliquis since then daughter does not recall any h/o DVT Review of Systems Review of Systems: gen - no fever cv - no chest pain pulm - cough, hoarse voice GI - no pain Physical Exam Physical Exam: gen - morbidly obese, sitting in chair, NAD HENT - mouth with MMM; crowded posterior pharynx; hoarse voice; no thrush; hearing impaired neck - no JVD heart - RRR, s1 s2, no murmur lungs - CTA b/l, decreased BS bases abd - soft NT ND BS+ ext - <1+ edema b/l, pulses 2+ b/l skin - EXTENSIVE ecchymoses over right posterior back, right flank, right abdominal wall, right groin region Results & Data Results & [facility] ([facility]) Vital Signs (Past 12 Hours) Vital Signs Temp Pulse Pulse Resp BP Pulse Ox O2 Del Method 06/15/22 15:16 78 20 93 Nasal Cannula 06/15/22 14:55 36.7 C 70 20 127/73 98 Nasal Cannula 06/15/22 14:13 71 06/15/22 12:03 70 18 98 Nasal Cannula 06/15/22 11:53 37.5 C 72 18 95 Nasal Cannula 06/15/22 11:47 37.5 C 72 18 140/79 95 Nasal Cannula O2 Flow Rate 06/15/22 15:16 4 06/15/22 14:55 3 06/15/22 14:13 06/15/22 12:03 4 06/15/22 11:53 3 06/15/22 11:47 3 Laboratory Results Laboratory Results - last 24 hr 06/14/22 06/14/22 06/15/22 11:07 20:54 07:34 WBC 7.40 RBC 2.67 L Hgb 9.1 L 8.9 L Hct 26.8 L 26.7 L MCV 100.0 MCH 33.3 MCHC 33.3 RDW Std Deviation 52.2 H RDW Coeff of Tonya 14.5 Plt Count 142 MPV 10.8 Absolute Nucleated RBC 0.02 Nucleated RBC % (auto) 0.3 Sodium Potassium Chloride Carbon Dioxide Anion Gap BUN Creatinine Est Cr Clr Drug Dosing Est GFR ( Amer) Est GFR (Non-Af Amer) BUN/Creatinine Ratio Glucose Calcium Crossmatch See Detail 06/15/22 07:34 WBC RBC Hgb Hct MCV MCH MCHC RDW Std Deviation RDW Coeff of Tonya Plt Count MPV Absolute Nucleated RBC Nucleated RBC % (auto) Sodium 140 Potassium 4.2 Chloride 107 Carbon Dioxide 30 Anion Gap 3 BUN 21 Creatinine 0.83 Est Cr Clr Drug Dosing 58.5 Est GFR ( Amer) 72.5 Est GFR (Non-Af Amer) 62.5 BUN/Creatinine Ratio 25.3 H Glucose 125 H Calcium 8.7 Crossmatch PG Care Time/CCT Total # of Minutes Spent Total Time Spent with Patient: Total time spent is greater than 50% in coordination of care (as documented) at patient's floor/unit and/or counseling patient: Coding Level of Care Code 33881 SUB INP/OBS CARE 3/50MIN Diagnoses Traumatic hematoma of buttock S30.0XXA Acute blood loss anemia D62 Iron deficiency E61.1 Multiple falls R29.6 ALISHA (acute kidney injury) N17.9 HTN (hypertension) I10 Chronic respiratory failure with hypoxia J96.11 History of deep venous thrombosis or pulmonary embolus Anxiety F41.9 H/O: stroke Z86.73 Orthostatic hypotension I95.1 Pulmonary hypertension I27.20 Hoarseness of voice R49.0 Morbid obesity with BMI of 45.0-49.9, adult E66.01; Z68.42 Constipation K59.00
[2022-06-15] MEDS: LORazepam 0.5 MG TAB PO PRN (20:42)
[2022-06-15] MEDS: SIMVASTATIN 40 MG TAB PO SCH (20:45)
[2022-06-16] MEDS: ALBUT/IPRATROP 3MG/0.5MG NEB 3 ML VIAL NEB SCH ×4 (07:03→19:22)
[2022-06-16] MEDS: FLUTICASONE/VILANTEROL 100/25MCG 14 PUFFS/INHALER INH SCH (08:05)
[2022-06-16] MEDS: FUROSEMIDE 40 MG TAB PO SCH (08:06)
[2022-06-16] MEDS: ASPIRIN 81 MG ECTAB PO SCH (08:06)
[2022-06-16] MEDS: POLYETHYLENE (MIRALAX) 17 GM PACK PO SCH (08:06)
[2022-06-16] MEDS: VENLAFAXINE HCL 50 MG TAB PO SCH ×2 (08:06→20:43)
[2022-06-16] MEDS: carvediloL 6.25 MG TAB PO SCH ×2 (08:07→20:43)
[2022-06-16] MEDS: SENNA 8.6 MG TAB PO SCH (09:00)
--- NOTE | 2022-06-16 11:55 | XRay Report ---
XR chest 2V PA/lateral HISTORY: 89 years-old Female cough, hypoxia; eval pneumonia, etc acute cough COMPARISON: Chest radiograph 06/11/2022, CT abdomen pelvis 06/12/2022 TECHNIQUE: PA and lateral views of the chest FINDINGS: Cardiac silhouette is mildly enlarged. Atherosclerosis of the aorta. No pneumothorax. Mild blunting o f the posterior costophrenic angles with possible trace pleural effusions. Mild bibasilar airspace op acities, similar to the prior study. Bones appear grossly intact. IMPRESSION: Mild bibasilar opacities seen best on the lateral view are suggestive of probable atelect asis. A mild nonspecific pneumonitis could appear similarly. ACT 112: Negative or not required by law. The above report was generated using voice recognition software. It may contain grammatical, syntax o r spelling errors. Electronically signed by: Jeovanny Berger M.D. 06/16/2022 11:54 AM
[2022-06-16] MEDS ORDERED: IRON SUCROSE 200 MG in 0.9 % SODIUM CHLORIDE 100 ML IV ONE (14:30)
[2022-06-16] MEDS: SIMVASTATIN 40 MG TAB PO SCH (20:43)
[2022-06-16] MEDS: LORazepam 0.5 MG TAB PO PRN (20:50)
[2022-06-16] MEDS: ACETAMINOPHEN 325 MG TAB PO PRN (20:50)
[2022-06-16] MEDS ORDERED: bisacodyL 10 MG SUPP PR STA (20:58)
--- NOTE | 2022-06-16 20:59 | Hospitalist Progress Note ---
Date of Service June 16, 2022 Assessment & Plan (1) Traumatic hematoma of buttock: Plan: right lower back/buttock -- 15 x 14.8 x 3.7 cm on imaging ELIQUIS on hold asa 81mg daily being cautiously continued supportive care, pain control, serial H/H's timing of resumption of Eliquis uncertain (2) Acute blood loss anemia: Plan: 2nd to #1 above s/p 2 units PRBCs earlier in the stay H/H stable since Fe studies c/w Iron Deficiency which would argue for more chronic blood loss issues (see below) CBC am (3) Iron deficiency: Plan: ferritin <25 this suggests chronic blood loss - perhaps occult GI blood loss in setting of chronic Eliquis/aspirin usage ? 200mg IV venofer x 1 today plan to repeat venofer tomorrow - 300mg cbc am (4) Multiple falls: Plan: 2nd to severe orthostasis as documented at time of admission? rechecked orthostatics today and negative PT, OT needs placement for rehab (5) ALISHA (acute kidney injury): Plan: Peak Cr 1.35 now 0.8 resolved lasix resumed BMP am (6) HTN (hypertension): Plan: Coreg dosage decreased on admission to 6.25mg BID. Lasix resumed 06/14. BPs controlled. Orthostatics today negative. (7) Chronic respiratory failure with hypoxia: Plan: on chronic home O2, 2-4 L stable etiology for chronic hypoxia? OHS/IMANI? pulmonary HTN? other? she has had recurrent infections since 02/[address] chest in light of this as well as prior PEs (see below) (8) History of deep venous thrombosis or pulmonary embolus: Plan: h/o PE - 2019 hospitalized at [facility] for such records obtained -- negative dopplers, CTA chest at that time with b/l upper lobe PEs, RML PEs, and RLL PEs; no RV strain etiology of PEs uncertain - unprovoked event sometime about the same time period she also had b/l strokes - presumed embolic records indicate that she was told to take Eliquis indefinitely Eliquis now on hold due to #1 timing of resumption of Eliquis in light of #1 uncertain (9) Anxiety: Plan: Cont venlafaxine (10) H/O: stroke: Plan: 2019 embolic per records was on Eliquis prior to this admission; now on hold due to acute blood loss anemia and hematoma formation (11) Orthostatic hypotension: Plan: severe at time of admission may have contributed to her fall suspect orthostasis was due to severe acute blood loss anemia orthostatic BPs today wnl (12) Pulmonary hypertension: Plan: last echo with at least moderate pulm HTN (13) Hoarseness of voice: Plan: documented cough/congestion/wheezing dating back to 02/2022 etiology? need for ENT eval - ?laryngoscopy? consider repeat chest CT given refractory pulmonary symptoms (14) Morbid obesity with BMI of 45.0-49.9, adult: Plan: BMI 45 (15) Constipation: Plan: senna + miralax still no BM - thus, dulcolax suppos x 1 Plan cont PT, OT daughter updated by phone 06/15 dispo - rehab post-discharge Admission and Anticipated Discharge Date Admission Date: June 12, 2022 Subjective no events overnight telemetry wnl patient continues with hoarse voice and cough o2 requirements unchanged ambulating with assistance to bathroom still no bowel movement bruising on buttocks and right flank/right back still quite tender tolerated IV venofer today Review of Systems Review of Systems: gen - eating ok cv - no orthopnea pulm - no sputum GI - no abd pain; no nausea Physical Exam Physical Exam: gen - morbidly obese, laying flat in bed comfortably HENT - mouth with MMM; hoarse voice; hearing impaired neck - no JVD heart - RRR, s1 s2, no murmur lungs - CTA b/l, decreased BS bases, wheezes bases abd - soft NT ND BS+ ext - <1+ edema b/l, pulses 2+ b/l skin - EXTENSIVE ecchymoses over right posterior back, right flank, right abdominal wall, right groin region, right ant proximal thigh - no change Results & Data Results & Data ([facility]) Vital Signs (Past 12 Hours) Vital Signs Temp Pulse Pulse Pulse Resp BP Pulse Ox 06/16/22 19:00 36.6 C 81 18 106/63 93 06/16/22 19:24 83 18 91 06/16/22 14:00 77 06/16/22 15:17 36.5 C 75 20 124/61 97 06/16/22 14:58 72 18 95 06/16/22 11:36 37.0 C 84 20 117/64 99 06/16/22 10:50 72 16 94 O2 Del Method O2 Flow Rate 06/16/22 19:00 Nasal Cannula 4 06/16/22 19:24 Nasal Cannula 4 06/16/22 14:00 06/16/22 15:17 Nasal Cannula 4 06/16/22 14:58 Nasal Cannula 4 06/16/22 11:36 Nebulizer 9 06/16/22 10:50 Nasal Cannula 4 PG Care Time/CCT Total # of Minutes Spent Total Time Spent with Patient: Total time spent is greater than 50% in coordination of care (as documented) at patient's floor/unit and/or counseling patient: Coding Level of Care Code 80139 SUB INP/OBS CARE 2/35MIN Diagnoses Traumatic hematoma of buttock S30.0XXA Acute blood loss anemia D62 Iron deficiency E61.1 Multiple falls R29.6 ALIHSA (acute kidney injury) N17.9 HTN (hypertension) I10 Chronic respiratory failure with hypoxia J96.11 History of deep venous thrombosis or pulmonary embolus Anxiety F41.9 H/O: stroke Z86.73 Orthostatic hypotension I95.1 Pulmonary hypertension I27.20 Hoarseness of voice R49.0 Morbid obesity with BMI of 45.0-49.9, adult E66.01; Z68.42 Constipation K59.00
[2022-06-16] MEDS: UMECLIDINIUM BROMIDE 62.5MCG/BLISTER 7 PUFFS/INHALER INH SCH (22:14)
[2022-06-17 05:56] LABS: Hematocrit (blood only) 27.1 % (37.0-47.0); Hemoglobin 8.8 g/dl (12.0-16.0); Mean Corpuscular Hgb Conc 32.5 g/dL (32.0-36.0); Mean Corpuscular Volume 101.5 fL (80.0-100.0); Mean Platelet Volume 10.5 fL (9.4-12.4); Platelet Count 168 K/uL (130-400); RDW Coefficient of Variation 14.1 % (11.5-14.5); Red Blood Count 2.67 M/uL (4.20-5.40)
[2022-06-17 06:06] LABS: BUN Creatinine Ratio 25.3 (10-20); C Reactive Protein 5.95 mg/dl (0-0.5); Calcium 8.6 mg/dl (8.5-10.1); Creatinine Clr Calc Pharmacy 56.3 ml/min; Est GFR (African American) 68.5 ml/min; Est GFR (Non-African American) 59.1 ml/min; Potassium 4.1 mmol/L (3.5-5.1)
[2022-06-17] MEDS: ALBUT/IPRATROP 3MG/0.5MG NEB 3 ML VIAL NEB SCH ×3 (07:03→19:21)
[2022-06-17] MEDS ORDERED: bisacodyL 10 MG SUPP PR SCH (08:00)
[2022-06-17] MEDS ORDERED: IRON SUCROSE 300 MG in SODIUM CHLORIDE 0.9% 250 ML IV ONE (08:15)
[2022-06-17] MEDS: ASPIRIN 81 MG ECTAB PO SCH (10:19)
[2022-06-17] MEDS: carvediloL 6.25 MG TAB PO SCH ×2 (10:20→20:58)
[2022-06-17] MEDS: FLUTICASONE/VILANTEROL 100/25MCG 14 PUFFS/INHALER INH SCH (10:20)
[2022-06-17] MEDS: FUROSEMIDE 40 MG TAB PO SCH (10:21)
[2022-06-17] MEDS: POLYETHYLENE (MIRALAX) 17 GM PACK PO SCH (10:22)
[2022-06-17] MEDS: SENNA 8.6 MG TAB PO SCH (10:23)
[2022-06-17] MEDS: UMECLIDINIUM BROMIDE 62.5MCG/BLISTER 7 PUFFS/INHALER INH SCH (10:24)
[2022-06-17] MEDS: VENLAFAXINE HCL 50 MG TAB PO SCH ×2 (10:25→20:58)
[2022-06-17] MEDS ORDERED: MICONAZOLE NITRATE POWDER 85 GM EXT PRN (10:41)
[2022-06-17] MEDS ORDERED: OPTIRAY 320 500ml IV ONE (12:58)
--- NOTE | 2022-06-17 13:21 | CT Scan Report ---
CT angio chest PE protocol CT DOSE: 5028.01 mGy.cm HISTORY: 89 years-old Female with chronic cough, h/o PE; eval PE, infiltrates. Chronic cough TECHNIQUE: Multiple CTA images of the chest were obtained after the intravenous administration of 112 ml Optiray. Coronal and sagittal MIPS were obtained from the axial data set and were submitted for review. All measurements were obtained according to NASCET criteria. A dose lowering technique was u tilized adhering to the principles of ALARA. COMPARISON: CT pelvis of same day, chest CT 09/28/2021 FINDINGS: Study is degraded by respiratory motion artifact. CTA: Moderate cardiomegaly. No pericardial effusion. Extensive coronary artery calcifications. Atheroscler osis of the thoracic aorta without aneurysm. Suboptimal evaluation of the pulmonary artery secondary to contrast bolus timing and respiratory motion artifact. No central pulmonary emboli are identified. CT CHEST: Heterogeneity and nodularity of the thyroid measuring up to 1.4 cm on the right. No lymphadenopathy i dentified. No pneumothorax, pleural effusion or overt pulmonary edema. Mild mosaic attenuation. Bibas ilar groundglass and linear subsegmental opacities. No suspicious pulmonary nodules or masses. Decrea sed AP dimension of the trachea and bronchi. Tiny hiatal hernia. No acute process of the imaged upper abdomen. No acute fracture. Degenerative stephanie nges of the shoulders and spine. Ill-defined areas of sclerosis are noted within the sternal body, si milar to prior. IMPRESSION: 1. Cardiomegaly without central pulmonary emboli identified. The study however is limited as above. 2. Bibasilar atelectasis with questioned tracheobronchomalacia. 3. No adenopathy or pleural effusion. 4. Tiny hiatal hernia. ACT 112: Negative or not required by law. The above report was generated using voice recognition software. It may contain grammatical, syntax o r spelling errors. Electronically signed by: Jeovanny Berger M.D. 06/17/2022 1:19 PM
--- NOTE | 2022-06-17 15:43 | CT Scan Report ---
CT SCAN OF THE PELVIS WITHOUT IV CONTRAST CLINICAL HISTORY: Right buttock hematoma. COMPARISON STUDY: Pelvic CT dated 06/12/2022. TECHNIQUE: CT scan of the pelvis is performed from the pelvic inlet to the proximal femora. Images ar e reviewed in the axial, sagittal, and coronal planes. IV contrast was not administered for this exam ination. A dose lowering technique was utilized adhering to the principles of ALARA. The examination is degraded by large body habitus, and by streak artifact from the body wall abutting the CT gantry. FINDINGS: There are calcified uterine fibroids. The bladder is normal as visualized. No adnexal lesion is seen. No intraperitoneal free air or ascites is seen in the pelvis. There is no pelvic sidewall or inguina l lymphadenopathy. Visualized loops of small bowel and colon are normal in caliber, with no evidence of obstruction. A normal appendix is seen in the right lower quadrant. Advanced atherosclerotic calci fication and ectasia is noted in the abdominal aorta. Advanced atherosclerotic change is also seen in the iliac arteries. The perianal soft tissues are normal as visualized. There is no retroperitoneal or pelvic hemorrhage. The skeletal structures are osteopenic. The bony pelvis appears intact. Lumbosacral spondylosis is ob served. Arthritic changes are noted in the hips. No lytic or blastic lesion is seen. There is general ized atrophy of the regional musculature which appears symmetric. A subcutaneous soft tissue hematoma in the right lower back\supragluteal region is similar to previous. This measures approximately 16.5 x 3 x 15 cm as seen on image #122. There is surrounding soft tissue infiltration. IMPRESSION: 1. A subcutaneous soft tissue hematoma in the right lower back/supragluteal region is similar in appe arance to the 06/12/2022 examination. 2. Fibroid uterus. 3. Additional findings as above. ACT 112: Negative or not required by law. Dictated: 06/17/2022 1:32 PM Transcribed: 06/17/2022 1:43 PM [place] [id number] [email or web address]_Luisa Electronically signed by: Pool Zuñiga M.D. 06/17/2022 3:42 PM
[2022-06-17] MEDS: SIMVASTATIN 40 MG TAB PO SCH (20:58)
[2022-06-17] MEDS: LORazepam 0.5 MG TAB PO PRN (21:03)
[2022-06-17] MEDS: ACETAMINOPHEN 325 MG TAB PO PRN (21:03)
--- NOTE | 2022-06-17 21:56 | Hospitalist Progress Note ---
Date of Service June 17, 2022 Assessment & Plan (1) Traumatic hematoma of buttock: Plan: right lower back/buttock -- 15 x 14.8 x 3.7 cm on imaging 06/12/[address] today - hematoma largely unchanged in size ELIQUIS still on hold asa 81mg daily being cautiously continued H/H remain stable timing of resumption of Eliquis uncertain due to the large size & extent of her hematoma & bruising (2) Acute blood loss anemia: Plan: 2nd to #1 above s/p 2 units PRBCs earlier in the stay H/H stable since Fe studies c/w Iron Deficiency which would argue for more chronic blood loss issues (see below) CBC am (3) Iron deficiency: Plan: ferritin <25 this suggests chronic blood loss - perhaps occult GI blood loss in setting of chronic Eliquis/aspirin usage ? 200mg IV venofer 06/16/22 repeat IV venofer today - give 300mg then give 300mg tomorrow cbc am (4) Multiple falls: Plan: 2nd to severe orthostasis as documented at time of admission? rechecked orthostatics and negative PT, OT needs placement for rehab suspect presenting orthostasis was due to bleeding & acute anemia (5) ALISHA (acute kidney injury): Plan: Peak Cr 1.35 now 0.8 lasix resumed BMP am (6) HTN (hypertension): Plan: Coreg dosage decreased on admission to 6.25mg BID. Lasix resumed 06/14. BPs controlled. Orthostatics now negative. (7) Chronic respiratory failure with hypoxia: Plan: on chronic home O2, 2-4 L stable etiology for chronic hypoxia? OHS/IMANI? pulmonary HTN? combination? other? she has had recurrent infections since 02/[address] chest obtained today - no PE, no significant infiltrates, no emphysematous changes (8) History of deep venous thrombosis or pulmonary embolus: Plan: h/o PE - [facility] -- negative dopplers, CTA chest at that time with b/l upper lobe PEs, RML PEs, and RLL PEs; no RV strain etiology of PEs uncertain - unprovoked event sometime about the same time period she also had b/l strokes - presumed embolic records indicate that she was told to take Eliquis indefinitely Eliquis now on hold due to #1 timing of resumption of Eliquis in light of #1 uncertain (9) Anxiety: Plan: Cont venlafaxine (10) H/O: stroke: Plan: 2019 embolic per records was on Eliquis prior to this admission; now on hold due to acute blood loss anemia and hematoma formation (11) Orthostatic hypotension: Plan: severe at time of admission may have contributed to her fall suspect orthostasis was due to severe acute blood loss anemia orthos now normal (12) Pulmonary hypertension: Plan: last echo with at least moderate pulm HTN (13) Hoarseness of voice: Plan: documented cough/congestion/wheezing dating back to 02/2022 etiology? need for ENT eval - ?laryngoscopy? 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 Admission and Anticipated Discharge Date Admission Date: June 12, 2022 Subjective tele wnl overnight patient eating fair moved bowels finally (at least 2x's) having some minor blood per rectum - bright red, when wiping after a BM has h/o hemorrhoids requiring hemorrhoidectomy states breathing is similar to previous visits does report reflux symptoms and regurgitation - will taste old food in her mouth at times denies coughing with eating/drinking denies dyspnea today Review of Systems Review of Systems: gen - no fevers cv - no chest pain pulm - no dyspnea at rest GI - no abd pain Physical Exam Physical Exam: gen - morbidly obese, sitting in chair, NAD HENT - hoarse voice unchanged ; hearing impairment unchanged neck - no JVD heart - RRR, s1 s2, no murmur lungs - CTA b/l, decreased BS bases, wheezes bases - unchanged abd - soft NT ND BS+ ext - trace edema b/l, pulses 2+ b/l skin - buttock hematoma was NOT examined today Results & Data Results & Data ([facility]) Vital Signs (Past 12 Hours) Vital Signs Temp Pulse Pulse Pulse Resp BP Pulse Ox 06/17/22 21:32 36.4 C L 138 H 18 118/66 92 06/17/22 20:23 36.7 C 83 18 139/80 94 06/17/22 19:21 18 94 06/17/22 15:28 36.5 C 76 18 111/70 96 06/17/22 14:15 78 06/17/22 12:00 36.5 C 78 18 137/77 96 06/17/22 11:14 80 18 95 06/17/22 10:47 O2 Del Method O2 Flow Rate 06/17/22 21:32 Nasal Cannula 4 06/17/22 20:23 Nasal Cannula 4 06/17/22 19:21 Nasal Cannula 4 06/17/22 15:28 Nasal Cannula 3 06/17/22 14:15 06/17/22 12:00 Nasal Cannula 3 06/17/22 11:14 Nasal Cannula 4 06/17/22 10:47 Nasal Cannula 3 Laboratory Results Laboratory Results - last 24 hr 06/17/22 06/17/22 05:34 05:34 WBC 6.50 RBC 2.67 L Hgb 8.8 L Hct 27.1 L MCV 101.5 H MCH 33.0 MCHC 32.5 RDW Std Deviation 51.0 H RDW Coeff of Tonya 14.1 Plt Count 168 MPV 10.5 Sodium 139 Potassium 4.1 Chloride 104 Carbon Dioxide 33 H Anion Gap 2 L BUN 22 Creatinine 0.87 Est Cr Clr Drug Dosing 56.3 Est GFR ( Amer) 68.5 Est GFR (Non-Af Amer) 59.1 BUN/Creatinine Ratio 25.3 H Glucose 130 H Calcium 8.6 C-Reactive Protein 5.95 H PG Care Time/CCT Total # of Minutes Spent Total Time Spent with Patient: Total time spent is greater than 50% in coordination of care (as documented) at patient's floor/unit and/or counseling patient: Coding Level of Care Code 70680 SUB INP/OBS CARE 3/50MIN Diagnoses Traumatic hematoma of buttock S30.0XXA Acute blood loss anemia D62 Iron deficiency E61.1 Multiple falls R29.6 ALISHA (acute kidney injury) N17.9 HTN (hypertension) I10 Chronic respiratory failure with hypoxia J96.11 History of deep venous thrombosis or pulmonary embolus Anxiety F41.9 H/O: stroke Z86.73 Orthostatic hypotension I95.1 Pulmonary hypertension I27.20 Hoarseness of voice R49.0 Morbid obesity with BMI of 45.0-49.9, adult E66.01; Z68.42 Constipation K59.00
[2022-06-17] MEDS ORDERED: METOPROLOL TARTRATE 1 MG/ML VIAL IV PRN (23:17)
[2022-06-18 06:37] LABS: Hematocrit (blood only) 28.9 % (37.0-47.0); Hemoglobin 9.2 g/dl (12.0-16.0); Mean Corpuscular Hemoglobin 33.2 pg (25.0-34.0); Mean Corpuscular Hgb Conc 31.8 g/dL (32.0-36.0); Mean Corpuscular Volume 104.3 fL (80.0-100.0); Mean Platelet Volume 10.4 fL (9.4-12.4); Platelet Count 184 K/uL (130-400); RDW Coefficient of Variation 14.2 % (11.5-14.5); RDW Standard Deviation 53.1 fL (36.4-46.3); Red Blood Count 2.77 M/uL (4.20-5.40); White Blood Count 6.41 K/ul (4.8-10.8)
[2022-06-18 06:53] LABS: BUN Creatinine Ratio 21.9 (10-20); Calcium 8.6 mg/dl (8.5-10.1); Creatinine Clr Calc Pharmacy 51.3 ml/min; Est GFR (African American) 60.8 ml/min; Est GFR (Non-African American) 52.4 ml/min; Potassium 4.2 mmol/L (3.5-5.1)
[2022-06-18] MEDS: ALBUT/IPRATROP 3MG/0.5MG NEB 3 ML VIAL NEB SCH ×2 (07:03→19:06)
[2022-06-18] MEDS: POLYETHYLENE (MIRALAX) 17 GM PACK PO SCH (08:16)
[2022-06-18] MEDS: VENLAFAXINE HCL 50 MG TAB PO SCH ×2 (08:17→20:56)
[2022-06-18] MEDS: ASPIRIN 81 MG ECTAB PO SCH (08:17)
[2022-06-18] MEDS: UMECLIDINIUM BROMIDE 62.5MCG/BLISTER 7 PUFFS/INHALER INH SCH (08:17)
[2022-06-18] MEDS: FLUTICASONE/VILANTEROL 100/25MCG 14 PUFFS/INHALER INH SCH (08:17)
[2022-06-18] MEDS: SENNA 8.6 MG TAB PO SCH (08:17)
[2022-06-18] MEDS: FUROSEMIDE 40 MG TAB PO SCH (08:42)
[2022-06-18] MEDS: METOPROLOL TARTRATE 25 MG TAB PO SCH ×3 (08:42→18:18)
--- NOTE | 2022-06-18 10:35 | XCELERA ---
[id number]
[2022-06-18] MEDS ORDERED: IRON SUCROSE 300 MG in SODIUM CHLORIDE 0.9% 250 ML IV ONE (10:45)
--- NOTE | 2022-06-18 11:57 | Electrocardiogram Report ---
Test Reason : Blood Pressure : / mmHG Vent. Rate : 132 BPM Atrial Rate : 125 BPM P-R Int : 000 ms QRS Dur : 102 ms QT Int : 322 ms P-R-T Axes : 000 031 -37 degrees QTc Int : 477 ms Atrial fibrillation with rapid ventricular response with premature ventricular or aberrantly conducte d complexes RSR' or QR pattern in V1 suggests right ventricular conduction delay Abnormal ECG When compared with ECG of 12-JUN-2022 12:31, Atrial fibrillation has replaced Sinus rhythm Vent. rate has increased BY 64 BPM RSR' pattern in V1 is now Present Confirmed by Poncho Ta ([id number]) on 06/18/2022 11:56:49 AM Referred By: REFERRED SELF Confirmed By:Poncho Ta
[2022-06-18 13:42] LABS: Troponin I High Sensitivity 122.7 pg/ml (0-14)
[2022-06-18 15:28] LABS: Magnesium 2.1 mg/dl (1.7-2.4)
[2022-06-18 15:42] LABS: Troponin I High Sensitivity 123.5 pg/ml (0-14)
[2022-06-18] MEDS ORDERED: Heparin IV Adult Wt-Based Standard *NO* Bolus Protocol IV SCH (17:18)
[2022-06-18] MEDS: HEPARIN SODIUM/DEXTROSE 25,000 UNITS/500 ML BAG IV SCH (18:54)
--- NOTE | 2022-06-18 20:15 | Hospitalist Progress Note ---
Date of Service June 18, 2022 Assessment & Plan (1) Atrial fibrillation with RVR: Plan: converted to such late last pm. symptomatic - palpitations at onset, and chest tightness across entire chest for about an hour. Symptoms resolved once rate control was better. I have d/c coreg and changed her to metoprolol 25mg q6h. Rates already better with such. Ultimately change to 50mg BID if rates are controlled. she was previously on eliquis BID for h/o b/l embolic CVAs and PEs. her CHADs-VASc is very high thus need to get AC restarted. in light of recent fall with significant bleeding & hematoma formation over R buttock will use standard heparin drip first. no bolus. follow CBCs to ensure no bleeding. ultimately resume her eliquis. cont tele monitoring. recent echo noted. of note - in 2019 had b/l CVAs of unknown cause. Perhaps she has had PAF for several years leading to her past embolic stroke?? (2) Chest tightness: Plan: likely due to the afib itself but can't exclude underlying CAD given her ST segment depressions seen on EKG. check HS troponin and trend. pain/tightness resolved once the RVR resolved. consider cards consult for ischemic evaluation but hold off for now. (3) Traumatic hematoma of buttock: Plan: right lower back/buttock -- 15 x 14.8 x 3.7 cm on imaging 06/12/[address] 06/17 - hematoma largely unchanged in size ELIQUIS still on hold asa 81mg daily being cautiously continued H/H remain stable in light of rapid a.fib, prior embolic CVAs, and prior PEs will cautiously start heparin infusion w/o bolus serial CBCs and exams (4) Acute blood loss anemia: Plan: 2nd to #1 above s/p 2 units PRBCs earlier in the stay H/H stable since Fe studies c/w Iron Deficiency which would argue for more chronic blood loss issues (see below) CBC am (5) Iron deficiency: Plan: ferritin <25 this suggests chronic blood loss - perhaps occult GI blood loss in setting of chronic Eliquis/aspirin usage ? 200mg IV venofer 06/16/22 300mg IV venofer 06/17/22 300mg IV venofer today cbc am (6) Multiple falls: Plan: 2nd to severe orthostasis as documented at time of admission? rechecked orthostatics and negative PT, OT needs placement for rehab suspect presenting orthostasis was due to bleeding & acute anemia could rapid a.fib have ever triggered some of her falls? (7) ALISHA (acute kidney injury): Plan: Peak Cr 1.35 now 0.8 lasix resumed BMP am (8) HTN (hypertension): Plan: changed coreg to metoprolol as noted above. cont lasix. (9) Chronic respiratory failure with hypoxia: Plan: on chronic home O2, 2-4 L stable etiology for chronic hypoxia? OHS/IMANI? pulmonary HTN? combination? other? she has had recurrent infections since 02/[address] chest obtained - no PE, no significant infiltrates, no emphysematous changes (10) History of deep venous thrombosis or pulmonary embolus: Plan: h/o PE - 2019 hospitalized at [facility] for such records obtained -- negative dopplers, CTA chest at that time with b/l upper lobe PEs, RML PEs, and RLL PEs; no RV strain etiology of PEs uncertain - unprovoked event sometime about the same time period she also had b/l strokes - presumed embolic records indicate that she was told to take Eliquis indefinitely Eliquis now on hold due to buttock hematoma -- but starting heparin infusion cautiously today (11) Anxiety: Plan: Cont venlafaxine (12) H/O: stroke: Plan: 2019 embolic per records was on Eliquis prior to this admission; now on hold due to acute blood loss anemia and hematoma formation was PAF the cause of her stroke then?? (13) Orthostatic hypotension: Plan: severe at time of admission may have contributed to her fall suspect orthostasis was due to severe acute blood loss anemia orthos now normal (14) Pulmonary hypertension: Plan: last echo with at least moderate pulm HTN (15) Hoarseness of voice: Plan: documented cough/congestion/wheezing dating back to 02/2022 etiology? need for ENT eval - ?laryngoscopy? patient does have GERD symptoms and is at risk of aspiration given her body habitus speech eval appreciated, recs noted (16) Morbid obesity with BMI of 45.0-49.9, adult: Plan: BMI 45 (17) Constipation: Plan: senna + miralax resolved send stool for fecal occult in light of Fe deficiency Plan cont PT, OT daughter extensively updated at bedside today dispo - rehab post-discharge Admission and Anticipated Discharge Date Admission Date: June 12, 2022 Subjective patient sitting in chair by window no new complaints today feels good no worsening of chronic PHELAN tele overnight - a.fib, converted to such late last night moved to PCU - rates >100 coreg changed to metoprolol -- rates now <100 she reports that for about 1 hour - prior to being moved to PCU - she could feel palpitations and had chest tightness b/l it ultimately resolved when she got moved to her new room no chest tightness since she does not feel any palpitations this am right buttock feels similar to previous visits daughter was at bedside today; questions answered Review of Systems Review of Systems: gen - good appetite, overall feels well cv - see HPI pulm - no dyspnea at rest; mild cough still GI - no pain, no nausea Physical Exam Physical Exam: gen - morbidly obese, sitting in chair, NAD HENT - hoarse voice unchanged ; hearing impairment unchanged neck - no JVD heart - irregularly irregular, s1 s2, no murmur lungs - CTA b/l, decreased BS bases, minimal wheeze today abd - soft NT ND BS+ ext - trace edema b/l, pulses 2+ b/l skin - buttock hematoma was NOT examined today - no way to position her to do so psych - a/o x3 Results & Data Results & Data ([facility]) Vital Signs (Past 12 Hours) Vital Signs Temp Pulse Resp BP Pulse Ox O2 Del Method O2 Flow Rate 06/18/22 20:07 36.7 C 68 16 96 Nasal Cannula 4 06/18/22 19:35 Nasal Cannula 4 06/18/22 19:06 18 93 Nasal Cannula 4 06/18/22 16:02 36.3 C L 71 18 131/71 93 Nasal Cannula 4 06/18/22 11:33 36.6 C 95 H 21 117/76 97 Nasal Cannula 4 Laboratory Results Laboratory Results - last 24 hr 06/18/22 06/18/22 06/18/22 05:45 05:45 05:45 WBC 6.41 RBC 2.77 L Hgb 9.2 L Hct 28.9 L MCV 104.3 H MCH 33.2 MCHC 31.8 L RDW Std Deviation 53.1 H RDW Coeff of Tonya 14.2 Plt Count 184 MPV 10.4 Sodium 140 Potassium 4.2 Chloride 104 Carbon Dioxide 34 H Anion Gap 2 L BUN 21 Creatinine 0.96 Est Cr Clr Drug Dosing 51.3 Est GFR ( Amer) 60.8 Est GFR (Non-Af Amer) 52.4 BUN/Creatinine Ratio 21.9 H Glucose 125 H Calcium 8.6 Magnesium Troponin I High Sens 122.7 H* Cancelled 06/18/22 06/18/22 14:58 14:59 WBC RBC Hgb Hct MCV MCH MCHC RDW Std Deviation RDW Coeff of Tonya Plt Count MPV Sodium Potassium Chloride Carbon Dioxide Anion Gap BUN Creatinine Est Cr Clr Drug Dosing Est GFR ( Amer) Est GFR (Non-Af Amer) BUN/Creatinine Ratio Glucose Calcium Magnesium Cancelled 2.1 Troponin I High Sens 123.5 H* Diagnostic Findings EKG overnight - a.fib with RVR; inferior and anterior ST depressions PG Care Time/CCT Total # of Minutes Spent Total Time Spent with Patient: Total time spent is greater than 50% in coordination of care (as documented) at patient's floor/unit and/or counseling patient: Coding Level of Care Code 92040 SUB INP/OBS CARE 3/50MIN Diagnoses Atrial fibrillation with RVR I48.91 Chest tightness R07.89 Traumatic hematoma of buttock S30.0XXA Acute blood loss anemia D62 Iron deficiency E61.1 Multiple falls R29.6 ALISHA (acute kidney injury) N17.9 HTN (hypertension) I10 Chronic respiratory failure with hypoxia J96.11 History of deep venous thrombosis or pulmonary embolus Anxiety F41.9 H/O: stroke Z86.73 Orthostatic hypotension I95.1 Pulmonary hypertension I27.20 Hoarseness of voice R49.0 Morbid obesity with BMI of 45.0-49.9, adult E66.01; Z68.42 Constipation K59.00
[2022-06-18] MEDS: ACETAMINOPHEN 325 MG TAB PO PRN (20:55)
[2022-06-18] MEDS: LORazepam 0.5 MG TAB PO PRN (20:56)
[2022-06-18] MEDS: SIMVASTATIN 40 MG TAB PO SCH (20:56)
[2022-06-19 01:51] LABS: Partial Thromboplastin Ratio 2.8
[2022-06-19 01:58] LABS: Partial Thromboplastin Time 77.4 Seconds (21.0-31.0)
[2022-06-19] MEDS: ALBUT/IPRATROP 3MG/0.5MG NEB 3 ML VIAL NEB SCH ×2 (07:04→20:58)
[2022-06-19] MEDS: METOPROLOL TARTRATE 50 MG TAB PO SCH ×2 (08:36→20:18)
[2022-06-19] MEDS: CYANOCOBALAMIN (B-12) 500 MCG TABLET PO SCH (08:36)
[2022-06-19] MEDS: VENLAFAXINE HCL 50 MG TAB PO SCH ×2 (08:37→20:17)
[2022-06-19] MEDS: FUROSEMIDE 40 MG TAB PO SCH (08:37)
[2022-06-19 08:38] LABS: Hematocrit (blood only) 28.6 % (37.0-47.0); Hemoglobin 9.2 g/dl (12.0-16.0); Mean Corpuscular Hemoglobin 33.5 pg (25.0-34.0); Mean Corpuscular Hgb Conc 32.2 g/dL (32.0-36.0); Mean Platelet Volume 10.6 fL (9.4-12.4); Nucleated RBC # (auto) 0.02 K/uL (0-0.12); Nucleated RBC % (auto) 0.3 %; Platelet Count 184 K/uL (130-400); RDW Coefficient of Variation 14.4 % (11.5-14.5); RDW Standard Deviation 53.1 fL (36.4-46.3); Red Blood Count 2.75 M/uL (4.20-5.40); White Blood Count 5.78 K/ul (4.8-10.8)
[2022-06-19] MEDS: ASPIRIN 81 MG ECTAB PO SCH (08:38)
[2022-06-19] MEDS: FLUTICASONE/VILANTEROL 100/25MCG 14 PUFFS/INHALER INH SCH (08:39)
[2022-06-19] MEDS: UMECLIDINIUM BROMIDE 62.5MCG/BLISTER 7 PUFFS/INHALER INH SCH (08:39)
[2022-06-19] MEDS: SENNA 8.6 MG TAB PO SCH (08:39)
[2022-06-19] MEDS: POLYETHYLENE (MIRALAX) 17 GM PACK PO SCH (08:43)
[2022-06-19 09:02] LABS: BUN Creatinine Ratio 22.3 (10-20); Calcium 9.3 mg/dl (8.5-10.1); Creatinine Clr Calc Pharmacy 53.1 ml/min; Est GFR (African American) 62.3 ml/min; Est GFR (Non-African American) 53.8 ml/min; Potassium 4.2 mmol/L (3.5-5.1)
[2022-06-19 10:05] LABS: Partial Thromboplastin Ratio 2.9
[2022-06-19 10:10] LABS: Partial Thromboplastin Time 79.4 Seconds (21.0-31.0)
--- NOTE | 2022-06-19 13:12 | Electrocardiogram Report ---
Test Reason : Blood Pressure : / mmHG Vent. Rate : 070 BPM Atrial Rate : 070 BPM P-R Int : 160 ms QRS Dur : 100 ms QT Int : 396 ms P-R-T Axes : 053 030 037 degrees QTc Int : 427 ms Normal sinus rhythm Increased R/S ratio in V1, consider early transition or posterior infarct Abnormal ECG When compared with ECG of 17-JUN-2022 21:29, Significant changes have occurred Confirmed by Poncho Ta ([id number]) on 06/19/2022 1:11:45 PM Referred By: REFERRED SELF Confirmed By:Poncho Ta
[2022-06-19] MEDS: HEPARIN SODIUM/DEXTROSE 25,000 UNITS/500 ML BAG IV SCH (13:23)
[2022-06-19] MEDS ORDERED: POTASSIUM CHLORIDE CRTAB 20 MEQ TABCR PO STA (15:09)
[2022-06-19] MEDS ORDERED: FUROSEMIDE 40 MG TAB PO ONE (15:09)
[2022-06-19 16:20] LABS: Partial Thromboplastin Ratio 2.5
[2022-06-19 16:26] LABS: Partial Thromboplastin Time 67.5 Seconds (21.0-31.0)
[2022-06-19] MEDS: PANTOprazole 40 MG TAB PO SCH ×2 (16:45→20:17)
[2022-06-19] MEDS: NYSTATIN POWDER 15GM BTL EXT SCH ×2 (16:45→20:18)
--- NOTE | 2022-06-19 19:54 | Hospitalist Progress Note ---
Date of Service June 19, 2022 Assessment & Plan (1) Atrial fibrillation with RVR: Plan: converted to rapid a.fib evening of /; converted back to NSR afternoon of 2/3 symptomatic - palpitations at onset, and chest tightness across entire chest for about an hour. Symptoms resolved once rate control was better. coreg d/c metoprolol started in [place] - titrated to 50mg BID HRs in NSR acceptable in the 60s she was previously on eliquis BID for h/o b/l embolic CVAs and PEs. her CHADs-VASc is very high thus need to get AC restarted. in light of recent fall with significant bleeding & hematoma formation over R buttock I have utilized standard heparin drip cautiously. CBCs stable since starting heparin drip. ultimately resume her eliquis. cont tele monitoring. recent echo noted. of note - in 2019 had b/l CVAs of unknown cause. Perhaps she has had PAF for several years leading to her past embolic stroke?? consider 30-day event monitor after d/c to assess a.fib frequency/burden. (2) Chest tightness: Plan: likely due to the afib itself but can't exclude underlying CAD given her ST segment depressions seen on EKG. pain/tightness resolved once the RVR resolved. troponin minimally elevated and has peaked. today's pain is musculoskeletal - reproducible and is the size of a 1/2 dollar - start voltaren gel 4gm QID for this area of pain. could consider cards consult for ischemic evaluation due to the chest tightness she had when her a.fib started but hold off for now. (3) Traumatic hematoma of buttock: Plan: right lower back/buttock -- 15 x 14.8 x 3.7 cm on imaging 06/12/[address] 06/17 - hematoma unchanged in size ELIQUIS still on hold asa 81mg daily being cautiously continued H/H remain stable on heparin drip serial CBCs and exams (4) Acute blood loss anemia: Plan: 2nd to #1 above s/p 2 units PRBCs earlier in the stay H/H stable since Fe studies c/w Iron Deficiency which would argue for more chronic blood loss issues (see below) CBC am (5) Iron deficiency: Plan: ferritin <25 this suggests chronic blood loss - perhaps occult GI blood loss in setting of chronic Eliquis/aspirin usage ? 200mg IV venofer 06/16/22 300mg IV venofer 06/17/22 300mg IV venofer 06/18/22 cbc am consider checking ferritin in a couple of days (6) Multiple falls: Plan: 2nd to severe orthostasis as documented at time of admission? rechecked orthostatics and negative PT, OT needs placement for rehab suspect presenting orthostasis was due to bleeding & acute anemia could rapid a.fib have ever triggered some of her falls as well? (7) ALISHA (acute kidney injury): Plan: Peak Cr 1.35 now 0.8 lasix resumed BMP am (8) HTN (hypertension): Plan: changed coreg to metoprolol as noted above. cont lasix. (9) Chronic respiratory failure with hypoxia: Plan: on chronic home O2, 2-4 L stable etiology for chronic hypoxia? OHS/IMANI? pulmonary HTN? combination? other? she has had recurrent infections since 02/[address] chest obtained - no PE, no significant infiltrates, no emphysematous changes (10) History of deep venous thrombosis or pulmonary embolus: Plan: h/o PE - 2019 hospitalized at [facility] for such records obtained -- negative dopplers, CTA chest at that time with b/l upper lobe PEs, RML PEs, and RLL PEs; no RV strain etiology of PEs uncertain - unprovoked event sometime about the same time period she also had b/l strokes - presumed embolic records indicate that she was told to take Eliquis indefinitely Eliquis now on hold due to buttock hematoma -- but is on heparin infusion cautiously in light of her buttock hematoma (11) Anxiety: Plan: Cont venlafaxine (12) H/O: stroke: Plan: 2019 embolic per records was on Eliquis prior to this admission; now on hold due to acute blood loss anemia and hematoma formation was PAF the cause of her stroke then?? (13) Orthostatic hypotension: Plan: severe at time of admission may have contributed to her fall suspect orthostasis was due to severe acute blood loss anemia orthos now normal (14) Pulmonary hypertension: Plan: last echo with at least moderate pulm HTN (15) Hoarseness of voice: Plan: documented cough/congestion/wheezing dating back to 02/2022 etiology? need for ENT eval - ?laryngoscopy? patient does have GERD symptoms and is at risk of aspiration given her body habitus speech eval appreciated, recs noted added PPI once daily (16) Morbid obesity with BMI of 45.0-49.9, adult: Plan: BMI 45 (17) Constipation: Plan: senna + miralax resolved send stool for fecal occult in light of Fe deficiency (18) Stephenie rash of groin: Plan: nystatin powder QID to R groin Plan cont PT, OT daughter extensively updated at bedside yesterday daughter briefly updated today by phone give a dose of extra lasix this afternoon dispo - rehab post-discharge Admission and Anticipated Discharge Date Admission Date: June 12, 2022 Subjective remains in NSR after converting from a.fib to NSR afternoon of 06/18 she feels well no change in chronic PHELAN has a mild chest wall discomfort near the xiphoid process; started after she had her echo hurts to touch the area eating well she thinks her hoarse voice is better c/o pruritic, irritating rash R groin Review of Systems Review of Systems: gen - good appetite, resting well at night cv - minimal LE edema pulm - no cough GI - no abd pain Physical Exam Physical Exam: gen - morbidly obese, sitting in chair by window, NAD HENT - hoarse voice slightly improved today; hearing impairment unchanged neck - no JVD heart - RRR, s1 s2, no murmur lungs - CTA b/l abd - soft NT ND BS+ ext - trace edema b/l, pulses 2+ b/l psych - a/o x3 skin - extensive ecchymoses R flank and R groin with rainbow of colors; right groin intertrigo/candidal rash Results & Data Results & Data ([facility]) Vital Signs (Past 12 Hours) Vital Signs Temp Pulse Pulse Resp BP Pulse Ox Pulse Ox 06/19/22 19:17 36.3 C L 66 20 133/67 96 06/19/22 17:58 64 06/19/22 15:42 36.5 C 64 20 138/76 98 06/19/22 11:38 36.6 C 60 21 128/78 97 06/19/22 08:00 67 06/19/22 08:00 06/19/22 08:00 98 O2 Del Method O2 Del Method O2 Flow Rate O2 Flow Rate 06/19/22 19:17 Nasal Cannula 4 06/19/22 17:58 06/19/22 15:42 Nasal Cannula 4 06/19/22 11:38 Nasal Cannula 4 06/19/22 08:00 06/19/22 08:00 Nasal Cannula 4 06/19/22 08:00 Nasal Cannula 4 Laboratory Results Laboratory Results - last 24 hr 06/19/22 06/19/22 06/19/22 01:05 07:59 07:59 WBC 5.78 RBC 2.75 L Hgb 9.2 L Hct 28.6 L MCV 104.0 H MCH 33.5 MCHC 32.2 RDW Std Deviation 53.1 H RDW Coeff of Tonya 14.4 Plt Count 184 MPV 10.6 Absolute Nucleated RBC 0.02 Nucleated RBC % (auto) 0.3 APTT 77.4 H* 79.4 H* PTT Ratio 2.8 2.9 Sodium Potassium Chloride Carbon Dioxide Anion Gap BUN Creatinine Est Cr Clr Drug Dosing Est GFR ( Amer) Est GFR (Non-Af Amer) BUN/Creatinine Ratio Glucose Calcium 06/19/22 06/19/22 07:59 15:29 WBC RBC Hgb Hct MCV MCH MCHC RDW Std Deviation RDW Coeff of Tonya Plt Count MPV Absolute Nucleated RBC Nucleated RBC % (auto) APTT 67.5 H* PTT Ratio 2.5 Sodium 139 Potassium 4.2 Chloride 102 Carbon Dioxide 35 H Anion Gap 2 L BUN 21 Creatinine 0.94 Est Cr Clr Drug Dosing 53.1 Est GFR ( Amer) 62.3 Est GFR (Non-Af Amer) 53.8 BUN/Creatinine Ratio 22.3 H Glucose 123 H Calcium 9.3 PG Care Time/CCT Total # of Minutes Spent Total Time Spent with Patient: Total time spent is greater than 50% in coordination of care (as documented) at patient's floor/unit and/or counseling patient: Coding Level of Care Code 22244 SUB INP/OBS CARE 3/50MIN Diagnoses Atrial fibrillation with RVR I48.91 Chest tightness R07.89 Traumatic hematoma of buttock S30.0XXA Acute blood loss anemia D62 Iron deficiency E61.1 Multiple falls R29.6 ALISHA (acute kidney injury) N17.9 HTN (hypertension) I10 Chronic respiratory failure with hypoxia J96.11 History of deep venous thrombosis or pulmonary embolus Anxiety F41.9 H/O: stroke Z86.73 Orthostatic hypotension I95.1 Pulmonary hypertension I27.20 Hoarseness of voice R49.0 Morbid obesity with BMI of 45.0-49.9, adult E66.01; Z68.42 Constipation K59.00 Stephenie rash of groin B37.89
[2022-06-19] MEDS: ACETAMINOPHEN 325 MG TAB PO PRN (20:16)
[2022-06-19] MEDS: DICLOFENAC SOD 1% GEL 100 GM TUBE EXT SCH ×2 (20:16→20:55)
[2022-06-19] MEDS: LORazepam 0.5 MG TAB PO PRN (20:16)
[2022-06-19] MEDS: SIMVASTATIN 40 MG TAB PO SCH (20:17)
[2022-06-20 00:03] LABS: Partial Thromboplastin Ratio 1.4; Partial Thromboplastin Time 37.7 Seconds (21.0-31.0)
[2022-06-20] MEDS ORDERED: Nursing to Pharmacy Communication SCH (00:15)
[2022-06-20] MEDS ORDERED: HEPARIN IV BOLUS 3,000 UNITS in SYRINGE 0 ML IV ONE (00:30)
[2022-06-20 06:59] LABS: Hematocrit (blood only) 29.9 % (37.0-47.0); Hemoglobin 9.4 g/dl (12.0-16.0); Mean Corpuscular Hgb Conc 31.4 g/dL (32.0-36.0); Mean Corpuscular Volume 104.9 fL (80.0-100.0); Mean Platelet Volume 10.4 fL (9.4-12.4); Platelet Count 193 K/uL (130-400); RDW Coefficient of Variation 14.1 % (11.5-14.5); RDW Standard Deviation 53.2 fL (36.4-46.3); Red Blood Count 2.85 M/uL (4.20-5.40); White Blood Count 6.37 K/ul (4.8-10.8)
[2022-06-20] MEDS: ALBUT/IPRATROP 3MG/0.5MG NEB 3 ML VIAL NEB SCH ×2 (07:03→19:46)
[2022-06-20 07:26] LABS: Partial Thromboplastin Ratio 2.8
[2022-06-20 07:33] LABS: BUN Creatinine Ratio 22.7 (10-20); Calcium 9.4 mg/dl (8.5-10.1); Creatinine Clr Calc Pharmacy 51.2 ml/min; Est GFR (Non-African American) 51.8 ml/min
[2022-06-20 07:43] LABS: Partial Thromboplastin Time 78.1 Seconds (21.0-31.0)
[2022-06-20] MEDS: HEPARIN SODIUM/DEXTROSE 25,000 UNITS/500 ML BAG IV SCH ×2 (07:47→21:15)
[2022-06-20] MEDS: SENNA 8.6 MG TAB PO SCH (07:59)
[2022-06-20] MEDS: METOPROLOL TARTRATE 50 MG TAB PO SCH ×2 (07:59→21:18)
[2022-06-20] MEDS: ASPIRIN 81 MG ECTAB PO SCH (07:59)
[2022-06-20] MEDS: CYANOCOBALAMIN (B-12) 500 MCG TABLET PO SCH (07:59)
[2022-06-20] MEDS: PANTOprazole 40 MG TAB PO SCH ×2 (07:59→21:26)
[2022-06-20] MEDS: FLUTICASONE/VILANTEROL 100/25MCG 14 PUFFS/INHALER INH SCH (07:59)
[2022-06-20] MEDS: UMECLIDINIUM BROMIDE 62.5MCG/BLISTER 7 PUFFS/INHALER INH SCH (07:59)
[2022-06-20] MEDS: VENLAFAXINE HCL 50 MG TAB PO SCH ×2 (07:59→21:27)
[2022-06-20] MEDS: FUROSEMIDE 40 MG TAB PO SCH (08:00)
[2022-06-20] MEDS: NYSTATIN POWDER 15GM BTL EXT SCH ×4 (08:00→21:26)
[2022-06-20] MEDS: DICLOFENAC SOD 1% GEL 100 GM TUBE EXT SCH ×4 (08:00→21:18)
[2022-06-20] MEDS: POLYETHYLENE (MIRALAX) 17 GM PACK PO SCH (08:07)
[2022-06-20 15:09] LABS: Partial Thromboplastin Ratio 1.9
--- NOTE | 2022-06-20 20:00 | Hospitalist Progress Note ---
Date of Service June 20, 2022 Assessment & Plan (1) Atrial fibrillation with RVR: Plan: converted to rapid a.fib evening of 06/17; converted back to NSR afternoon of 06/18. symptomatic - palpitations at onset, and chest tightness across entire chest for about an hour. Symptoms resolved once rate control was better. coreg d/c metoprolol started in [place] - titrated to 50mg BID HRs in NSR acceptable in the 60s no recurrent a.fib runs since 06/18/22 she has been stable on heparin drip with any worsening of her R buttock hematoma x 48 hours H/H stable x 48 hours can d/c heparin drip tonight and resume Eliquis 5mg BID at that time repeat a cbc in am cont tele monitoring. recent echo noted. of note - in 2019 had b/l CVAs of unknown cause. Perhaps she has had PAF for several years leading to her past embolic stroke?? will obtain 30-day event monitor after d/c to assess a.fib frequency/burden. (2) Chest tightness: Plan: likely due to the afib itself but can't exclude underlying CAD given her ST segment depressions seen on EKG. pain/tightness resolved once the RVR resolved. troponin minimally elevated and had peaked. had musculoskeletal chest wall pain on 06/19/22 - reproducible, near xiphoid process - now improved with voltaren gel 4gm QID could consider cards consult for ischemic evaluation due to the chest tightness she had when her a.fib started but hold off for now. will send to cardiology post-discharge (3) Traumatic hematoma of buttock: Plan: right lower back/buttock -- 15 x 14.8 x 3.7 cm on imaging 06/12/[address] 06/17/22 - hematoma unchanged in size H/H remain stable on heparin drip x 48 hours will stop heparin drip tonight revert back to eliquis 5mg BID cont serial CBCs and exams (4) Acute blood loss anemia: Plan: 2nd to #1 above s/p 2 units PRBCs earlier in the stay H/H stable since Fe studies c/w Iron Deficiency which would argue for more chronic blood loss issues (see below) CBC am for stability (5) Iron deficiency: Plan: ferritin <25 this suggests chronic blood loss - perhaps occult GI blood loss in setting of chronic Eliquis/aspirin usage ? 200mg IV venofer 06/16/22 300mg IV venofer 06/17/22 300mg IV venofer 06/18/22 cbc am fecal occult blood test still pending (6) Multiple falls: Plan: 2nd to severe orthostasis as documented at time of admission? rechecked orthostatics and negative PT, OT needs placement for rehab suspect presenting orthostasis was due to bleeding & acute anemia could rapid a.fib have ever triggered some of her falls as well? I also can't rule out cerebellar dysfunction causing her falls but much less likely - no ataxia on exam, and MRI brain in 04/2019 without strokes of the cerebellum (7) ALISHA (acute kidney injury): Plan: Peak Cr 1.35 now 0.9 lasix resumed - 40mg qam BMP am (8) HTN (hypertension): Plan: changed coreg to metoprolol as noted above. cont lasix. BPs controlled. (9) Chronic respiratory failure with hypoxia: Plan: on chronic home O2, 2-4 L stable etiology for chronic hypoxia? OHS/IMANI? pulmonary HTN? combination? other? she has had recurrent infections since 02/[address] chest obtained this admission - no PE, no significant infiltrates, no emphysematous changes (10) History of deep venous thrombosis or pulmonary embolus: Plan: h/o PE - 2019 hospitalized at [facility] for such records obtained -- negative dopplers, CTA chest at that time with b/l upper lobe PEs, RML PEs, and RLL PEs; no RV strain etiology of PEs uncertain - unprovoked event sometime about the same time period she also had b/l strokes - presumed embolic records indicate that she was told to take Eliquis indefinitely stopping heparin drip this evening resuming Eliquis 5mg BID tonight (11) Anxiety: Plan: Cont venlafaxine (12) H/O: stroke: Plan: 04/2019 hospitalized [facility] MRI brain at that time - 1. b/l pontine strokes 2. b/l occipital strokes 3. R frontal stroke 4. b/l parietal lobe stroke, with dominant cva R parietal region 5. right thalamus interestingly she always feels like she will fall to the right; would anticipate it would be opposite (falling to left as the left side would be theoretically a little weaker given the R parietal CVA and R thalamic CVA) either way she is on asa 81mg daily and Eliquis 5mg BID for secondary prevention I attempted to get a repeat MRI brain today to ensure no new stroke process prior to this admission - patient felt she could not tolerate MRI and thus canceled (13) Orthostatic hypotension: Plan: severe at time of admission may have contributed to her fall suspect orthostasis was due to severe acute blood loss anemia orthos now normal (14) Pulmonary hypertension: Plan: last echo with at least moderate pulm HTN (15) Hoarseness of voice: Plan: documented cough/congestion/wheezing dating back to 02/2022 etiology? need for ENT eval - ?laryngoscopy? patient does have GERD symptoms and is at risk of aspiration given her body habitus thus, hoarseness could be from GERD & aspiration speech eval appreciated, recs noted added PPI once daily (16) Morbid obesity with BMI of 45.0-49.9, adult: Plan: BMI 45-47 (17) Constipation: Plan: senna + miralax resolved send stool for fecal occult in light of Fe deficiency (18) Stephenie rash of groin: Plan: nystatin powder QID to R groin (19) Balance problem: Plan: 2nd to low-normal B12 levels? proprioceptive deficits due to aging? cerebellar strokes? again - encouraged patient to get MRI but she didn't feel she could complete it cont PT/OT Plan cont PT, OT daughter extensively updated at bedside today dispo - rehab post-discharge - Tuesday?? Admission and Anticipated Discharge Date Admission Date: June 12, 2022 Subjective patient overall feeling well no events overnight no a.fib on monitor; NSR in 60s sitting in chair eating well today no dyspnea had copious diuresis yesterday with extra 40mg of PO lasix she states that when she got up today (w/ assistance) to ambulate to bathroom she nearly fell; she felt as if she would fall to the right with falls she tends to lean towards the right and back balance has been poor since acute embolic CVAs in 04/2019 daughter, grand-daughter both at bedside today they inquired about when rehab might occur Review of Systems Review of Systems: gen - feels good HENT - hoarse voice improving cv - no chest pain pulm - no dyspnea at rest or cough neuro - nearly lose balance today walking to bathroom Physical Exam Physical Exam: gen - morbidly obese, sitting in chair by window, NAD; very pleasant HENT - hoarse voice again improved today; hearing impairment same neck - no JVD heart - RRR, s1 s2, no murmur lungs - CTA b/l; scant rales in bases now resolved abd - soft NT ND BS+ ext - no edema b/l, pulses 2+ b/l psych - a/o x3 neuro - finger/nose/finger maneuver b/l hands w/o ataxia; strength 5/5 x 4 exts Results & Data Results & Data ([facility]) Vital Signs (Past 12 Hours) Vital Signs Temp Pulse Pulse Resp BP Pulse Ox O2 Del Method 06/20/22 19:48 67 16 93 Nasal Cannula 06/20/22 18:40 36.7 C 65 18 117/68 96 Nasal Cannula 06/20/22 16:16 36.6 C 63 16 143/80 H 96 Nasal Cannula 06/20/22 11:46 36.7 C 56 L 22 117/61 95 Nasal Cannula O2 Flow Rate 06/20/22 19:48 3 06/20/22 18:40 4 06/20/22 16:16 2 06/20/22 11:46 4 Laboratory Results Laboratory Results - last 24 hr 06/19/22 06/20/22 06/20/22 23:10 06:20 06:20 WBC 6.37 RBC 2.85 L Hgb 9.4 L Hct 29.9 L MCV 104.9 H MCH 33.0 MCHC 31.4 L RDW Std Deviation 53.2 H RDW Coeff of Tonya 14.1 Plt Count 193 MPV 10.4 APTT 37.7 H PTT Ratio 1.4 Sodium 141 Potassium 4.0 Chloride 100 Carbon Dioxide 40 H Anion Gap 1 L BUN 22 Creatinine 0.97 Est Cr Clr Drug Dosing 51.2 Est GFR ( Amer) 60.0 Est GFR (Non-Af Amer) 51.8 BUN/Creatinine Ratio 22.7 H Glucose 100 H Calcium 9.4 06/20/22 06/20/22 06:20 14:16 WBC RBC Hgb Hct MCV MCH MCHC RDW Std Deviation RDW Coeff of Tonya Plt Count MPV APTT 78.1 H* 53.0 H* PTT Ratio 2.8 1.9 Sodium Potassium Chloride Carbon Dioxide Anion Gap BUN Creatinine Est Cr Clr Drug Dosing Est GFR ( Amer) Est GFR (Non-Af Amer) BUN/Creatinine Ratio Glucose Calcium PG Care Time/CCT Total # of Minutes Spent Total Time Spent with Patient: Total time spent is greater than 50% in coordination of care (as documented) at patient's floor/unit and/or counseling patient: Coding Level of Care Code 44268 SUB INP/OBS CARE 3/50MIN Diagnoses Atrial fibrillation with RVR I48.91 Chest tightness R07.89 Traumatic hematoma of buttock S30.0XXA Acute blood loss anemia D62 Iron deficiency E61.1 Multiple falls R29.6 ALISHA (acute kidney injury) N17.9 HTN (hypertension) I10 Chronic respiratory failure with hypoxia J96.11 History of deep venous thrombosis or pulmonary embolus Anxiety F41.9 H/O: stroke Z86.73 Orthostatic hypotension I95.1 Pulmonary hypertension I27.20 Hoarseness of voice R49.0 Morbid obesity with BMI of 45.0-49.9, adult E66.01; Z68.42 Constipation K59.00 Stephenie rash of groin B37.89 Balance problem R26.89
[2022-06-20] MEDS: LORazepam 0.5 MG TAB PO PRN (21:16)
[2022-06-20] MEDS: ACETAMINOPHEN 325 MG TAB PO PRN (21:16)
[2022-06-20] MEDS: APIXABAN 5 MG TABLET PO SCH (21:17)
[2022-06-20] MEDS: SIMVASTATIN 40 MG TAB PO SCH (21:27)
[2022-06-21 06:22] LABS: Hematocrit (blood only) 29.4 % (37.0-47.0); Hemoglobin 9.3 g/dl (12.0-16.0); Mean Corpuscular Hemoglobin 33.7 pg (25.0-34.0); Mean Corpuscular Hgb Conc 31.6 g/dL (32.0-36.0); Mean Corpuscular Volume 106.5 fL (80.0-100.0); Mean Platelet Volume 10.3 fL (9.4-12.4); Platelet Count 199 K/uL (130-400); RDW Coefficient of Variation 14.6 % (11.5-14.5); RDW Standard Deviation 54.4 fL (36.4-46.3); Red Blood Count 2.76 M/uL (4.20-5.40); White Blood Count 5.29 K/ul (4.8-10.8)
[2022-06-21 06:50] LABS: Creatinine Clr Calc Pharmacy 47.2 ml/min; Est GFR (African American) 54.5 ml/min; Potassium 3.9 mmol/L (3.5-5.1)
[2022-06-21] MEDS: ALBUT/IPRATROP 3MG/0.5MG NEB 3 ML VIAL NEB SCH ×2 (07:05→18:33)
[2022-06-21] MEDS: UMECLIDINIUM BROMIDE 62.5MCG/BLISTER 7 PUFFS/INHALER INH SCH (08:30)
[2022-06-21] MEDS: SENNA 8.6 MG TAB PO SCH (08:31)
[2022-06-21] MEDS: FUROSEMIDE 40 MG TAB PO SCH (08:31)
[2022-06-21] MEDS: FLUTICASONE/VILANTEROL 100/25MCG 14 PUFFS/INHALER INH SCH (08:31)
[2022-06-21] MEDS: CYANOCOBALAMIN (B-12) 500 MCG TABLET PO SCH (08:31)
[2022-06-21] MEDS: METOPROLOL TARTRATE 50 MG TAB PO SCH ×2 (08:31→20:07)
[2022-06-21] MEDS: NYSTATIN POWDER 15GM BTL EXT SCH ×4 (08:31→20:07)
[2022-06-21] MEDS: APIXABAN 5 MG TABLET PO SCH ×2 (08:31→20:07)
[2022-06-21] MEDS: PANTOprazole 40 MG TAB PO SCH ×2 (08:31→20:06)
[2022-06-21] MEDS: VENLAFAXINE HCL 50 MG TAB PO SCH ×2 (08:31→20:07)
[2022-06-21] MEDS: DICLOFENAC SOD 1% GEL 100 GM TUBE EXT SCH ×4 (08:31→20:07)
[2022-06-21] MEDS: POLYETHYLENE (MIRALAX) 17 GM PACK PO SCH (08:31)
[2022-06-21] MEDS: ASPIRIN 81 MG ECTAB PO SCH (08:31)
[2022-06-21] MEDS ORDERED: ALBUT/IPRATROP 3MG/0.5MG NEB 3 ML VIAL NEB STA (17:50)
[2022-06-21] MEDS: ACETAMINOPHEN 325 MG TAB PO PRN (20:06)
[2022-06-21] MEDS: LORazepam 0.5 MG TAB PO PRN (20:07)
[2022-06-21] MEDS: SIMVASTATIN 40 MG TAB PO SCH (20:07)
--- NOTE | 2022-06-22 05:55 | Hospitalist Progress Note ---
Date of Service June 21, 2022 Assessment & Plan (1) Hoarseness of voice: Plan: documented cough/congestion/wheezing episodes dating back to 02/2022 documentation shows multiple office visits for these episodes with use of steroids/abx for each CT chest obtained this admission - no PE, no significant infiltrates, no emphysematous changes her hoarse voice overnight worsened once again corresponding to the recurrent wheezing/cough that she is having today patient does have GERD symptoms and is at risk of aspiration given her body habitus she is on 40mg BID of protonix hoarseness, recurrent cough, recurrent wheezing could be from GERD & aspiration events was seen by speech earlier in the stay I left a message for them asking them to re-eval on 06/22 keep NPO in the event speech wishes to perform video swallow and/or barium swall ow I don't have any good explanation for this issue and #2 below other than episodes of aspiration (2) Chronic cough: Plan: see #[address] Chu in pulmonary clinic despite her inhaler usage prior PFTs did not show obstructive lung disease PFT 12/03/2021: No obstructive lung dysfunction, insignificant bronchodilator response, normal TLC, moderate decrease in DLCO FVC 2.02 L 86%, FEV1 1.57 L 91%, FEV1/FVC 78%, RV 97%, TLC 87%, RV/TLC 108%, DLCO 57%, DLCO/VA 77% chronic cough/wheezing 2nd to GERD/aspiration events?? she remains on duonebs BID scheduled gave an additional neb this afternoon for the wheezing to see if any effect I do not think that overnight events and today's pulmonary symptoms are from CHF CHF would not cause hoarse voice cont usual inhalers from home would send back to Dr Chu post-discharge (3) Chronic respiratory failure with hypoxia: Plan: on chronic home O2, 2-4 L stable etiology for chronic hypoxia? OHS/IMANI? pulmonary HTN? combination? other? she has had recurrent infections since 02/[address] chest obtained this admission - no PE, no significant infiltrates, no emphysematous changes sees Dr Chu in pulmonary clinic (4) Atrial fibrillation with RVR: Plan: converted to rapid a.fib evening of 06/17; converted back to NSR afternoon of 06/18. symptomatic - palpitations at onset, and chest tightness across entire chest for about an hour. Symptoms resolved once rate control was better. coreg was d/c metoprolol started in [place] - titrated to 50mg BID HRs in NSR acceptable in the 60s cont metoprolol 50mg BID no recurrent a.fib runs since 06/18/22 Eliquis had been on hold due to buttock hematoma Tolerated heparin drip x 48 hours without worsening hematoma and stable H/H Thus, resumed Eliquis 5mg BID last pm without incident cont tele monitoring. recent echo noted. of note - in 2019 had b/l CVAs of unknown cause. Perhaps she has had PAF for several years leading to her past embolic stroke?? will obtain 30-day event monitor after d/c to assess a.fib frequency/burden. also will send to cardiology to follow her PAF. (5) Chest tightness: Plan: occurred when she went into a.fib several days ago likely due to the afib itself but can't exclude underlying CAD given her ST segment depressions seen on EKG. pain/tightness resolved once the RVR resolved. troponin minimally elevated and had peaked. had musculoskeletal chest wall pain on 06/19/22 - reproducible, near xiphoid process - now improved/resolved with voltaren gel 4gm QID will send to [facility] cardi[place] post-discharge (6) Traumatic hematoma of buttock: Plan: right lower back/buttock -- 15 x 14.8 x 3.7 cm on imaging 06/12/[address] 06/17/22 - hematoma unchanged in size H/H have remained stable with resumption of anticoagulation (first heparin drip; now back to Eliquis) repeat an H/H in am (7) Acute blood loss anemia: Plan: 2nd to #1 above s/p 2 units PRBCs earlier in the stay s/p 3 runs of IV venofer while here H/H stable since Fe studies c/w Iron Deficiency which would argue for more chronic blood loss issues (see below) - unable to get a fecal occult blood yet H/H am for stability (8) Iron deficiency: Plan: ferritin <25 this suggests chronic blood loss - perhaps occult GI blood loss in setting of chronic Eliquis/aspirin usage ? 200mg IV venofer 06/16/22 300mg IV venofer 06/17/22 300mg IV venofer 06/18/22 fecal occult blood test still pending (9) Multiple falls: Plan: 2nd to severe orthostasis as documented at time of admission? rechecked orthostatics and negative PT, OT needs placement for rehab suspect presenting orthostasis was due to bleeding & acute anemia could rapid a.fib have ever triggered some of her falls as well? I also can't rule out cerebellar dysfunction causing her falls but much less likely - no ataxia on exam, and MRI brain in 04/2019 without strokes of the cerebellum (10) ALISHA (acute kidney injury): Plan: Peak Cr 1.35 now 1 lasix resumed - 40mg qam BMP remains stable (11) HTN (hypertension): Plan: changed coreg to metoprolol as noted above. cont lasix. BPs controlled. (12) History of deep venous thrombosis or pulmonary embolus: Plan: h/o PE - 2019 hospitalized at [facility] for such records obtained -- negative dopplers, CTA chest at that time with b/l upper lobe PEs, RML PEs, and RLL PEs; no RV strain etiology of PEs uncertain - unprovoked event sometime about the same time period she also had b/l strokes - presumed embolic records indicate that she was told to take Eliquis indefinitely stopped heparin drip last pm resumed Eliquis 5mg BID at that time (13) Anxiety: Plan: Cont venlafaxine (14) H/O: stroke: Plan: 04/2019 hospitalized [facility] MRI brain at that time - 1. b/l pontine strokes 2. b/l occipital strokes 3. R frontal stroke 4. b/l parietal lobe stroke, with dominant cva R parietal region 5. right thalamus interestingly she always feels like she will fall to the right; would anticipate it would be opposite (falling to left as the left side would be theoretically a little weaker given the R parietal CVA and R thalamic CVA) either way she is on asa 81mg daily and Eliquis 5mg BID for secondary prevention I attempted to get a repeat MRI brain to ensure no new stroke process prior to this admission - patient felt she could not tolerate MRI and thus I canceled it (15) Orthostatic hypotension: Plan: severe at time of admission may have contributed to her fall suspect orthostasis was due to severe acute blood loss anemia orthos now normal (16) Pulmonary hypertension: Plan: last echo with at least moderate pulm HTN could be contributing to NC O2 requirement (17) Morbid obesity with BMI of 45.0-49.9, adult: Plan: BMI 45-47 (18) Constipation: Plan: senna + miralax resolved send stool for fecal occult in light of Fe deficiency (19) Roman rash of groin: Plan: cont nystatin powder QID to R groin (20) Balance problem: Plan: 2nd to low-normal B12 levels? proprioceptive deficits due to aging? cerebellar strokes? again - encouraged patient to get MRI but she didn't feel she could complete it prior MRI in the past without cerebellar CVAs, however cont PT/OT Plan cont PT, OT daughter extensively updated at bedside yesterday await speech therapy input tomorrow dispo - rehab post-discharge - awaiting auth for [facility] Admission and Anticipated Discharge Date Admission Date: June 12, 2022 Subjective tele overnight - no runs of a.fib; NSR only patient states "I'm wheezing again" states that during the night time she started with a cough the cough then continued today the respiratory therapist told her that she had wheezes on examination today she also noted her hoarse voice was much worse today too cough is only mildly productive despite the above symptoms her O2 requirement is unchanged her appetite remains excellent her chronic dyspnea on exertion is the same denies any choking episode Review of Systems Review of Systems: gen - no fevers or chills cv - no chest pain or tightness; no increase in LE edema pulm - new onset wheezing and cough HENT - chronic hoarse voice worse today GI - no nausea, emesis, or abd pain musculo - R buttock remains sore Physical Exam Physical Exam: gen - morbidly obese, sitting in chair by window, NAD HENT - hoarse voice is WORSE Today neck - no obvious JVD heart - RRR, s1 s2, no murmur lungs - b/l wheezes posteriorly; no rales; airation wnl abd - soft NT ND BS+ ext - no edema b/l, pulses 2+ b/l psych - a/o x3 skin - large R buttock hematoma about the same as prior exams; roman rash R groin improving; extensive ecchymoses R flank, R groin, R buttock slowly improving Results & Data Results & Data ([facility]) Vital Signs (Past 12 Hours) Vital Signs Temp Pulse Pulse Pulse Resp BP Pulse Ox 06/21/22 19:41 36.5 C 69 18 154/80 H 94 06/21/22 18:33 72 18 96 O2 Del Method O2 Flow Rate 06/21/22 19:41 Nasal Cannula 2 06/21/22 18:33 Nasal Cannula 4 Laboratory Results Laboratory Results - last 24 hr 06/21/22 06/21/22 05:46 05:46 WBC 5.29 RBC 2.76 L Hgb 9.3 L Hct 29.4 L MCV 106.5 H MCH 33.7 MCHC 31.6 L RDW Std Deviation 54.4 H RDW Coeff of Tonya 14.6 H Plt Count 199 MPV 10.3 Sodium 140 Potassium 3.9 Chloride 102 Carbon Dioxide 35 H Anion Gap 3 BUN 21 Creatinine 1.05 Est Cr Clr Drug Dosing 47.2 Est GFR ( Amer) 54.5 Est GFR (Non-Af Amer) 47.0 BUN/Creatinine Ratio 20.0 Glucose 108 H Calcium 9.0 PG Care Time/CCT Total # of Minutes Spent Total Time Spent with Patient: Total time spent is greater than 50% in coordination of care (as documented) at patient's floor/unit and/or counseling patient: Coding Level of Care Code 11207 SUB INP/OBS CARE 3/50MIN Diagnoses Hoarseness of voice R49.0 Chronic cough R05.3 Chronic respiratory failure with hypoxia J96.11 Atrial fibrillation with RVR I48.91 Chest tightness R07.89 Traumatic hematoma of buttock S30.0XXA Acute blood loss anemia D62 Iron deficiency E61.1 Multiple falls R29.6 ALISHA (acute kidney injury) N17.9 HTN (hypertension) I10 History of deep venous thrombosis or pulmonary embolus Anxiety F41.9 H/O: stroke Z86.73 Orthostatic hypotension I95.1 Pulmonary hypertension I27.20 Morbid obesity with BMI of 45.0-49.9, adult E66.01; Z68.42 Constipation K59.00 Roman rash of groin B37.89 Balance problem R26.89
[2022-06-22 06:15] LABS: Hematocrit (blood only) 30.8 % (37.0-47.0); Hemoglobin 9.8 g/dl (12.0-16.0)
[2022-06-22] MEDS: ALBUT/IPRATROP 3MG/0.5MG NEB 3 ML VIAL NEB SCH (07:35)
--- NOTE | 2022-06-22 08:05 | Hospitalist Progress Note ---
Date of Service June 22, 2022 Assessment & Plan (1) Hoarseness of voice: Plan: acute worsening of chronic condition, documented cough/congestion/wheezing episodes dating back to 02/2022 documentation shows multiple office visits for these episodes with use of ster oids/abx for each CT chest obtained this admission - no PE, no significant infiltrates, no emphysematous changes her hoarse voice overnight worsened once again corresponding to the recurrent wheezing/cough that she is having today patient does have GERD symptoms and is at risk of aspiration given her body habitus she is on 40mg BID of protonix request speech re evaluation 06/22 (2) Chronic cough: Plan: PFT 12/03/2021: No obstructive lung dysfunction, insignificant bronchodilator response, normal TLC, moderate decrease in DLCO FVC 2.02 L 86%, FEV1 1.57 L 91%, FEV1/FVC 78%, RV 97%, TLC 87%, RV/TLC 108%, DLCO 57%, DLCO/VA 77% chronic cough/wheezing 2nd to GERD/aspiration events she remains on duonebs BID scheduled would send back to Dr Chu post-discharge (3) Chronic respiratory failure with hypoxia: Plan: on chronic home O2, 2-4 L stable etiology for chronic hypoxia? OHS/IMANI? pulmonary HTN? combination? other? she has had recurrent infections since 02/[address] chest obtained this admission - no PE, no significant infiltrates, no emphysematous changes (4) Atrial fibrillation with RVR: Plan: converted to rapid a.fib evening of 06/17; converted back to NSR afternoon of 06/18. symptomatic - palpitations at onset, and chest tightness across entire chest for about an hour. Symptoms resolved once rate control was better. coreg was d/c metoprolol started in [place] - titrated to 50mg BID HRs in NSR acceptable in the 60s cont metoprolol 50mg BID no recurrent a.fib runs since 06/18/22 Eliquis had been on hold due to buttock hematoma Tolerated heparin drip x 48 hours without worsening hematoma and stable H/H Thus, resumed Eliquis 5mg BID last pm without incident of note - in 2019 had b/l CVAs of unknown cause. 04/2019hospitalized [facility] MRI brain at that time - 1. b/l pontine strokes 2. b/l occipital strokes 3. R frontal stroke 4. b/l parietal lobe stroke, with dominant cva R parietal region 5. right thalamus consider PAF as etiology embolic stroke cardiology follow up (5) Chest tightness: Plan: Elevate troponin likely demand ischemia secondary to rapid rate with paroxysmal atrial fibrillation. (6) Traumatic hematoma of buttock: Plan: right lower back/buttock -- 15 x 14.8 x 3.7 cm on imaging 06/12/[address] 06/17/22 - hematoma unchanged in size H/H have remained stable with resumption of anticoagulation (first heparin drip; now back to Eliquis) Hemoglobin reviewed on 06/22 and stable (7) Acute blood loss anemia: Plan: 2nd to #1 above s/p 2 units PRBCs earlier in the stay s/p 3 runs of IV venofer while here H/H stable since Fe studies c/w Iron Deficiency which would argue for more chronic blood loss issues (see below) - unable to get a fecal occult blood yet (8) Multiple falls: Plan: Likely due to chronic brain injury from previous strokes PT, OT needs placement for rehab (9) ALISHA (acute kidney injury): Plan: Acute now resolved chronic kidney disease stage III lasix resumed - 40mg qam (10) HTN (hypertension): (11) History of deep venous thrombosis or pulmonary embolus: Plan: h/o PE - 2019 hospitalized at [facility] [place], Eliquis 5mg BID at that time (12) Anxiety: Plan: Cont venlafaxine (13) Morbid obesity with BMI of 45.0-49.9, adult: Plan: BMI 45-47 (14) Stephenie rash of groin: Plan: cont nystatin powder QID to R groin Plan dispo - rehab post-discharge - awaiting auth for [facility] Admission and Anticipated Discharge Date Admission Date: June 12, 2022 Results & Data Results & Data ([facility]) Vital Signs (Past 12 Hours) Vital Signs Temp Pulse Pulse Pulse Resp BP Pulse Ox 06/22/22 07:35 62 18 96 06/22/22 07:28 97.7 F 59 L 14 150/82 H 96 06/22/22 03:13 97.7 F 61 18 151/82 H 96 06/21/22 22:00 69 06/22/22 00:00 06/21/22 22:55 97.5 F L 77 16 160/66 H 94 O2 Del Method O2 Flow Rate 06/22/22 07:35 Nasal Cannula 4 06/22/22 07:28 Nasal Cannula 4 06/22/22 03:13 Nasal Cannula 2 06/21/22 22:00 06/22/22 00:00 Nasal Cannula 4 06/21/22 22:55 Nasal Cannula 2 PG Care Time/CCT Total # of Minutes Spent Total Time Spent with Patient: Total time spent is greater than 50% in coordination of care (as documented) at patient's floor/unit and/or counseling patient: Coding Diagnoses Hoarseness of voice R49.0 Chronic cough R05.3 Chronic respiratory failure with hypoxia J96.11 Atrial fibrillation with RVR I48.91 Chest tightness R07.89 Traumatic hematoma of buttock S30.0XXA Acute blood loss anemia D62 Multiple falls R29.6 ALISHA (acute kidney injury) N17.9 HTN (hypertension) I10 History of deep venous thrombosis or pulmonary embolus Anxiety F41.9 Morbid obesity with BMI of 45.0-49.9, adult E66.01; Z68.42 Stephenie rash of groin B37.89
[2022-06-22] MEDS: ASPIRIN 81 MG ECTAB PO SCH (08:22)
[2022-06-22] MEDS: FUROSEMIDE 40 MG TAB PO SCH (08:22)
[2022-06-22] MEDS: CYANOCOBALAMIN (B-12) 500 MCG TABLET PO SCH (08:22)
[2022-06-22] MEDS: APIXABAN 5 MG TABLET PO SCH (08:22)
[2022-06-22] MEDS: VENLAFAXINE HCL 50 MG TAB PO SCH (08:23)
[2022-06-22] MEDS: PANTOprazole 40 MG TAB PO SCH (08:23)
[2022-06-22] MEDS: METOPROLOL TARTRATE 50 MG TAB PO SCH (08:23)
[2022-06-22] MEDS: SENNA 8.6 MG TAB PO SCH (08:23)
[2022-06-22] MEDS: UMECLIDINIUM BROMIDE 62.5MCG/BLISTER 7 PUFFS/INHALER INH SCH (08:24)
[2022-06-22] MEDS: DICLOFENAC SOD 1% GEL 100 GM TUBE EXT SCH ×2 (08:24→12:23)
[2022-06-22] MEDS: FLUTICASONE/VILANTEROL 100/25MCG 14 PUFFS/INHALER INH SCH (08:24)
[2022-06-22] MEDS: NYSTATIN POWDER 15GM BTL EXT SCH ×2 (08:24→12:24)
--- NOTE | 2022-06-22 09:12 | XRay Report ---
XR chest 1V portable HISTORY: b/l wheezing COMPARISON: Chest 06/16/2022. FINDINGS: No pneumothorax. No pleural effusions. The cardiac silhouette remains enlarged. There is mi ld central pulmonary vascular congestion without overt edema. No new focal lung consolidations identi fied. Calcifications within the aortic knob. IMPRESSION: Cardiomegaly with mild pulmonary vascular congestion. ACT 112: Negative or not required by law. Electronically signed by: Evens Soler M.D. 06/22/2022 9:10 AM
[2022-06-22] MEDS: POLYETHYLENE (MIRALAX) 17 GM PACK PO SCH (09:37)
--- NOTE | 2022-06-22 11:40 | Fluoroscopy Report ---
MODIFIED BARIUM SWALLOW CLINICAL HISTORY: r/o aspiration COMPARISON STUDY: None. FLUOROSCOPY TIME: 2.3 minutes. EXPOSURE: 39.50 mGy. TECHNIQUE: A modified barium swallow was performed in conjunction with Speech Pathology. The patient ingested varying consistencies of barium containing material. Video fluoroscopy was performed. FINDINGS: No aspiration was identified with thin liquids, mildly thick liquids, pudding or crackers w ith paste. Penetration was noted with thin liquids and mildly thick liquids. Moderate vallecular resi duals were noted with mildly thick liquids. Epiglottic inversion was normal. Laryngeal elevation was normal. IMPRESSION: 1. No tracheal aspiration identified. 2. Moderate vallecular residuals with mildly thick liquids. 3. Full recommendations by Speech pathology follow. ACT 112: Negative or not required by law. Electronically signed by: Jae Barone M.D. 06/22/2022 11:39 AM
--- NOTE | 2022-06-22 14:08 | Discharge Summary ---
Date of Service June 22, 2022 Admission HPI Per Admitting Provider Lilian is an 89 year old female with a PMH significant for previous DVT and PE in 2019 on Eliquis, previous CVA, Pulmonary HTN, grade I diastolic dysfunction, chronic respiratory failure with Hypoxia on 2L NC at all times, and anxiety/depression who presented to the [facility] ED on 06/12/22 with complaints of generalized weakness and multiple recent falls at home. In the ED the patient was found to be afebrile, hemodynamically stable, and stable on 2L NC. Labs were remarkable for a CBC with WBC WNL, hgb of 9.5 (down from 11.4 on 04/15/22), MCV of 101 with stable MCHC, stable platelets at 173, cr at 1.35 (baseline appears to be around 1.0), stable electrolytes, glucose of 128, initial high sensitivity trop of 8.1, UA not suggestive of UTI, and Coivd/influenza/rsv negative. CT of the head was read as "No acute intracranial abnormality. Atrophy and microvascular ischemic changes.". Xray of the pelvis was read as "No fracture or dislocation within the pelvis or hips.". Chest xray from 06/11/22 was read as "No acute cardiopulmonary findings.". The patient lives alone and her family believes she is too weak at this time and will continue to fall. Prior to admission the patient was given 100 mg PO Doxycycline and a 500 mL fluid bolus. Per chart review, the patient was seen at her PCP's office on 06/11/22 for symptoms of cough and SOB. She was prescribed a tapering course of prednisone and albuterol. At the time of the exam the patient was resting comfortably in bed in no acute distress. History was only obtained from her as her family had left prior to my arrival. She states that she had a fall yesterday which occurred in her bathroom. She states that she was attempting to sit on the toilet but slipped and landed on her buttocks. She denies hitting her head or losing consciousness. Since her fall she denies head pain, cervical, thoracic, and lumbar pain, chest pain, abdominal pain, and LE pain. She does not soreness in her buttocks and states "i have a big bruise there now". She denies recent fevers, chills, chest pain, nausea, vomiting, diarrhea, dysuria, hematuria, poor appetite, bloody bowel movements, melena, and recent LE swelling. She confirms that she saw her PCP yesterday and when asked states that she started the prednisone and albuterol this morning. When asked, she currently denies fevers, chills, changes in vision, hearing, taste, and smell, chest pain, increased SOB from baseline, cough, abdominal pain, nausea, vomiting, diarrhea, dysuria, hematuria, and lower extremity swelling/pain. We discussed code status and she wishes to be a DNR/DNI. I called and spoke with her Daughter/POA (Lanie; number is in the chart) to obtain further history and confirm her med rec. Her daughter states that she has fallen twice in the past 24 hours. She fell yesterday trying to sit in a chair in her bedroom. She landed on her buttocks and did not lose consciousness. She used her life alert and EMS examined her and helped her up, she was not taken to the ED. This morning her Daughter's and daughter went over to check on her and help her with breakfast. She ate breakfast and took her morning medications without issue. They helped her stand and she began to walk to the bathroom while using her walker. She became dizzy and fell backwards, her granddaughter was able to catch her and they brought her to the ED. He daughter denies that the patient has recently been confused. She confirms that the patient started taking the prednisone and albuterol this am. Her daughter is in agreement with having the patient evaluated by PT/OT and confirmed that the patient is a DNR/DNI. Please refer to Dr. Stearns's attestation for any changes to the treatment plan Principal Diagnosis chronic respiratory failure with hypoxia, on home oxygen hoarseness suspected secondary to reflux atrial fibrillation elevated troponin - demand ischemia traumatic hematoma of buttock with Acute blood loss anemia s/p 2 u prbc and 3 doses venofer alisha with ckd resolved alisha Discharge Exam Patient was eating lunch she is not coughing. She was on oxygen. Her lungs were diminished at the bases but otherwise clear without wheezes and fair goodly good air movement Discharge Data Allergies Allergy/AdvReac Type Severity Reaction Status Date / Time No Known Drug Allergies Allergy Unknown Verified 06/11/22 14:08 Consultations 06/12/22 15:06 ED Decision to Admit Stat Ordered Studies 06/12/22 12:40 CT head/brain wo con Stat 06/12/22 15:36 CT abd pelvis wo con Urgent 06/17/22 10:38 CT pelvis wo con Routine 06/17/22 10:39 CT angio chest PE protocol Routine 06/22/22 10:30 Fluoro video [FL video swallow] Routine Hospital Course (1) Hoarseness of voice: acute worsening of chronic condition, documented cough/congestion/wheezing episodes dating back to 02/2022 documentation shows multiple office visits for these episodes with use of steroids/abx for each CT chest obtained this admission - no PE, no significant infiltrates, no emphysematous changes Speech eval with video swallow prior to dc with only mild pharyngeal penetration that can be cleared released to reg diet and thin liquids with continued aspiration precautions typically follows with ENT mnpg, suggest continue to follow patient does have GERD symptoms and is at risk of aspiration given her body habitus she is on 40mg BID of protonix request speech re evaluation 06/22 (2) Chronic cough: PFT 12/03/2021: No obstructive lung dysfunction, insignificant bronchodilator response, normal TLC, moderate decrease in DLCO FVC 2.02 L 86%, FEV1 1.57 L 91%, FEV1/FVC 78%, RV 97%, TLC 87%, RV/TLC 108%, DLCO 57%, DLCO/VA 77% chronic cough/wheezing 2nd to GERD/aspiration events she remains on inhaled medications targeted to treat her chronic respiratory failure would send back to Dr Chu post-discharge (3) Chronic respiratory failure with hypoxia: on chronic home O2, 2-4 L stable she has had recurrent infections since 02/[address] chest obtained this admission - no PE, no significant infiltrates, no emphysematous changes incruse ellipta and albuterol (4) Atrial fibrillation with RVR: converted to rapid a.fib evening of 06/17; converted back to NSR afternoon of 06/18. symptomatic - palpitations at onset, and chest tightness across entire chest for about an hour. Symptoms resolved once rate control was better. coreg was d/c metoprolol started in [place] - titrated to 50mg BID HRs in NSR acceptable in the 60s cont metoprolol 50mg BID no recurrent a.fib runs since 06/18/22 Eliquis had been on hold due to buttock hematoma Tolerated heparin drip x 48 hours without worsening hematoma and stable H/H Thus, resumed Eliquis 5mg BID last pm without incident of note - in 2019 had b/l CVAs of unknown cause. 04/2019hospitalized [facility] [address] MRI brain at that time - 1. b/l pontine strokes 2. b/l occipital strokes 3. R frontal stroke 4. b/l parietal lobe stroke, with dominant cva R parietal region 5. right thalamus consider PAF as etiology embolic stroke cardiology follow up (5) Chest tightness: Elevate troponin likely demand ischemia secondary to rapid rate with paroxysmal atrial fibrillation. (6) Traumatic hematoma of buttock: right lower back/buttock -- 15 x 14.8 x 3.7 cm on imaging 06/12/[address] 06/17/22 - hematoma unchanged in size H/H have remained stable with resumption of anticoagulation (first heparin drip; now back to Eliquis) Hemoglobin reviewed on 06/22 and stable (7) Acute blood loss anemia: 2nd to #1 above s/p 2 units PRBCs earlier in the stay s/p 3 runs of IV venofer while here H/H stable since Fe studies c/w Iron Deficiency which would argue for more chronic blood loss issue (8) Multiple falls: Likely due to chronic brain injury from previous strokes PT, OT. ST continute at rehab (9) ALISHA (acute kidney injury): Acute now resolved chronic kidney disease stage III lasix resumed - 40mg qam (10) HTN (hypertension): (11) History of deep venous thrombosis or pulmonary embolus: h/o PE - 2019 hospitalized at [facility], Eliquis 5mg BID at that time (12) Anxiety: Cont venlafaxine (13) Morbid obesity with BMI of 45.0-49.9, adult: BMI 45-47 (14) Stephenie rash of groin: cont nystatin powder QID to R groin as needed Total Time Total Time Spent Total Time Spent (In Minutes): It required greater than 30 minutes to prepare this patient for discharge Discharge Plan Discharge Items Patient Disposition: Transfer Inpatient Rehab Fac Reason For Visit: GENERALIZED WEAKNESS, MULTIPLE FALLS Discharge Diagnosis: chronic respiratory failure with hypoxia, on home oxygen hoarseness suspected secondary to reflux atrial fibrillation elevated troponin - demand ischemia traumatic hematoma of buttock with Acute blood loss anemia s/p 2 u prbc and 3 doses venofer alisha with ckd resolved alisha Activity: Per Instructions section Non-emergency contact: Primary Care Provider Call non-emergency contact if: your symptoms worsen Follow-up/Referrals: Waqas Reilly DO [Primary Care Provider] - Katia Adames MD [Physician] - (Per Dr. Frederick to be seen due to Chronic hoarse voice) Diet: Heart Healthy Addtl Attending Provider Instructions: Patient significant issues with hoarseness and coughing. This was felt to be secondary to reflux. She did have a swallowing study attempted prior to transfer. This procedure showed laryngeal aspiration although some laryngeal penetration the penetration was cleared with additional cleansing swallows which were effective at clearing to the oral and pharyngeal there was remaining oral and pharyngeal residue. Speech therapy recommendations easy to chew IDDSI 7 heart healthy thin liquid diet with aspiration precautions and good mouth care [facility] Pending Studies at Discharge: No Stand-Alone Forms: [facility] Skilled Items Patient informed of condition?: Yes DNR: Yes Discharge Level of Care: Acute rehab Communicable Disease: Yes Discharge Prognosis: Stable Lines: None Urinary Catheter: No Medications and DC Order Prescriptions: New sennosides [Senokot] 8.6 mg Tablet 17.2 mg PO QAM Qty: 60 0RF lorazepam 0.5 mg Tablet 0.25 mg PO HS PRN (Reason: insomnia) Qty: 30 0RF metoprolol tartrate 50 mg Tablet 50 mg PO BID Qty: 60 0RF Incruse Ellipta 62.5 mcg/actuation Blister With Device 1 inh inhalation QAM Qty: 30 0RF cyanocobalamin (vitamin B-12) 500 mcg Tablet 1,000 mcg PO QAM Qty: 30 0RF Continued venlafaxine 100 mg tablet 100 mg PO BID Qty: 180 3RF O2 4 l continuous inhalation CONTINOUS Qty: 1 0RF furosemide 40 mg tablet 40 mg PO DAILY Qty: 90 1RF apixaban 5 mg tablet 5 mg PO BID Qty: 60 3RF albuterol sulfate 90 mcg/actuation HFA aerosol inhaler 2 puff inhalation QID PRN (Reason: shortness of breath or wheezing) Qty: 6.7 3RF aspirin [Adult Aspirin Regimen] 81 mg tablet,delayed release (DR/EC) 81 mg PO DAILY simvastatin 40 mg tablet 40 mg PO QPM acetaminophen 325 mg capsule 650 mg PO Q4H PRN (Reason: Pain) polyethylene glycol 3350 [Miralax] 17 gram/dose powder 17 gm PO DAILY multivitamin Tablet 1 tab PO DAILY omega [id number]-fish oil 1,000 mg (120 mg-180 mg) capsule 1 cap PO DAILY budesonide-formoterol [Symbicort] 80-4.5 mcg/actuation HFA aerosol inhaler 1 inh inhalation BID Qty: 10.2 2RF Changed pantoprazole 40 mg tablet,delayed release (DR/EC) 40 mg PO BID Qty: 90 3RF Discontinued carvedilol 12.5 mg tablet 12.5 mg PO BID Qty: 180 3RF montelukast 10 mg tablet 10 mg PO DAILY Qty: 90 3RF albuterol sulfate 2.5 mg/0.5 mL solution for nebulization 5 mg inhalation Q6H PRN (Reason: shortness of breath or wheezing) Qty: 30 0RF lorazepam 0.5 mg tablet 0.5 mg PO TID PRN (Reason: Anxiety) 90 Days Qty: 270 0RF potassium chloride 20 mEq tablet,ER particles/crystals 20 meq PO DAILY Qty: 90 1RF clotrimazole-betamethasone 1-0.05 % cream 1 applic topical BID 14 Days Qty: 15 1RF Rx Instructions: Apply to the external right ear twice daily x 7 days then twice weekly x 3 weeks then as needed for itching/flaking Apply to the left ear alternating with mupirocin ointment daily x 2 weeks then PRN itching/flaking. prednisone 10 mg tablet 10 mg PO .COMPLEX Qty: 30 0RF Rx Instructions: 4 tabs for 3 days, 3 tabs for 3 days, 2 tabs for 3 days, 1 tab for 3 days albuterol sulfate 2.5 mg /3 mL (0.083 %) solution for nebulization 2.5 mg inhalation Q6H PRN (Reason: shortness of breath or wheezing) Qty: 180 0RF ondansetron HCl [Zofran] 4 mg tablet 4 mg PO Q6H PRN (Reason: nausea and vomiting) Qty: 15 0RF mupirocin 2 % ointment 1 applic topical DAILY PRN (Reason: Skin Irritation) Rx Instructions: apply once daily to the left ear alternating with clotrimazole-betamethasone ointment x 2 weeks. Discharge Orders: Discharge Order (Routine); Ordered 06/22/22 Ordered By: Chapincito Hudson Admission Data Admit Date/Time: 06/12/22 15:19 Attending Provider: Chapincito Hudson Admit Provider: Steve Morfin Primary Care Provider: Waqas Reilly Other Providers: [facility] ; Steve Morfin ; [place] Coding Level of Care Code HOSP INP/OBS DISCH >30 MIN Diagnoses Hoarseness of voice R49.0 Chronic cough R05.3 Chronic respiratory failure with hypoxia J96.11 Atrial fibrillation with RVR I48.91 Chest tightness R07.89 Traumatic hematoma of buttock S30.0XXA Acute blood loss anemia D62 Multiple falls R29.6 ALISHA (acute kidney injury) N17.9 HTN (hypertension) I10 History of deep venous thrombosis or pulmonary embolus Anxiety F41.9 Morbid obesity with BMI of 45.0-49.9, adult E66.01; Z68.42 Stephenie rash of groin B37.89
--- NOTE | 2022-08-12 08:03 | Coding Query ---
A supporting diagnosis is required for the test/procedure performed on this patient in order for us to be reimbursed by the patient's insurance. Please provide a supporting diagnosis for the following test/procedure listed below next to the test name along with your signature. *If there is no additional diagnosis for this patient that would support the following test/procedure please document that below next to the test/procedure. Test(s)/Procedure(s) that require a supporting diagnosis: dysphagia * [id number] VIDEO SWALLOW DIAGNOSIS: DATE OF SERVICE: 06/22/22 Provider Signature: Date: Thank you Sixto Bentley [facility] Information Management Once completed, please kindly fax back to [phone] For questions please call [phone] VAISHNAVI
== END 2022-06-22 14:42 ==
LOC: ED 12:16 → 2N 15:19 → INTOOBSV 15:19 → SUATTDRO 15:19 → 2N 20:39 → 2S 06-17 22:49